=== PATIENT | male | born 1950 | race Caucasian/White ===

== ENCOUNTER 2016-09-05 17:13 | Observation (INO) | payer BC ==
--- NOTE | 2016-09-05 17:33 | EDPHY ---
HPI/HX/ROS/PE/MDM Narrative: CHIEF COMPLAINT: Atrial fibrillation HPI: This patient is an anticoagulated 66-year-old male with history of recently diagnosed atrial fibrillation who presents to the Emergency Department following an episode of tachycardia with heart rate above 200 as measured by his pulse oximeter beginning at midnight last night and persisting for three hours before spontaneously resolving. He awoke this morning feeling extremely fatigued and reports recurrence of his tachycardia, prompting him to present to the ED. He reports associated dyspnea. Denies chest pain, nausea, or additional complaints. He is in the process of being evaluated by Dr. Gray for his atrial fibrillation and is wearing a Holter monitor at time of presentation. REVIEW OF SYSTEMS: Aside from elements discussed in the HPI, a comprehensive 10-point review of systems was reviewed and is negative. PMH: Atrial fibrillation (Eliquis) SOCIAL HISTORY: at bedside PHYSICAL EXAM: General:Patient is alert, in no acute distress. ENT:Eyes are normal to inspection. ENT inspection normal. Neck: Normal inspection. Full range of motion. Respiratory:No respiratory distress. Breath sounds normal bilaterally. Cardiovascular: Irregular rhythm, normal rate. Strong peripheral pulses. Normal cap refill. Abdomen:The abdomen is nontender to palpation. There are no peritoneal signs. There are normal bowel sounds. Back: Normal to inspection. No tenderness to palpation. Skin: Normal color. No rash. Warm and dry. Extremities: Normal appearance. Full range of motion. Neuro: Oriented x3. Normal motor function. Normal sensory function. ED Course: This 66-year-old male recently diagnosed with atrial fibrillation and currently undergoing evaluated by Dr. Gray presents with complaint of tachycardia as measured by his pulse oximeter from midnight to 3:00am this morning and residual lightheadedness and fatigue persisting to the present. He denies chest pain, SOB, nausea, or vomiting. He has an irregularly rhythm but normal rate at time of presentation. No additional significant findings on exam. Will proceed with labs, including Troponin; EKG; and chest x-ray. IV established. 1L IV NS administered. EKG was ordered and interpreted by myself: atrial flutter, rate 83. Please see Fancred system for official reading. X-ray reviewed and is normal. Labs reviewed: Troponin is mildly elevated at 0.045. I discussed lab, EKG, and imaging findings with the patient along with my recommendation that he be admitted for further cardiac workup and observation. He is agreeable to this. 185: Consultation with Dr. Haley Almanza, hospitalist, who accepts admission. MDM: This patient presents in atrial flutter with paroxysmal rapid rate and an elevated troponin. He requires admission for further workup and treatment. - Data Points Imaging Results: Imaging Impressions Chest X-Ray 09/05/16 17:45 Impression: Normal. Imaging: I viewed and interpreted images myself Laboratory Results: Laboratory Results 09/05/16 17:53 09/05/16 17:53 09/05/16 09/05/16 17:53 17:53 WBC 9.85 10^3/uL H 10^3/uL (3.80-9.50) RBC 5.57 10^6/uL 10^6/uL (4.40-6.38) Hgb 17.3 g/dL g/dL (13.7-17.5) Hct 48.0 % % (40.0-51.0) MCV 86.2 fL fL (81.5-99.8) MCH 31.1 pg pg (27.9-34.1) MCHC 36.0 g/dL g/dL (32.4-36.7) RDW 13.4 % % (11.5-15.2) Plt Count 226 10^3/uL 10^3/uL (150-400) MPV 9.8 fL fL (8.7-11.7) Neut % (Auto) 58.8 % % (39.3-74.2) Lymph % (Auto) 25.9 % % (15.0-45.0) Metcalfe % (Auto) 10.3 % % (4.5-13.0) Eos % (Auto) 4.2 % % (0.6-7.6) Baso % (Auto) 0.6 % % (0.3-1.7) Nucleat RBC Rel Count 0.0 % % (0.0-0.2) Absolute Neuts (auto) 5.80 10^3/uL 10^3/uL (1.70-6.50) Absolute Lymphs (auto) 2.55 10^3/uL 10^3/uL (1.00-3.00) Absolute Monos (auto) 1.01 10^3/uL H 10^3/uL (0.30-0.80) Absolute Eos (auto) 0.41 10^3/uL H 10^3/uL (0.03-0.40) Absolute Basos (auto) 0.06 10^3/uL 10^3/uL (0.02-0.10) Absolute Nucleated RBC 0.00 10^3/uL 10^3/uL (0-0.01) Immature Gran % 0.2 % % (0.0-1.1) Immature Gran # 0.02 10^3/uL 10^3/uL (0.00-0.10) Sodium 137 mEq/L mEq/L (134-144) Potassium 3.3 mEq/L L mEq/L (3.5-5.2) Chloride 100 mEq/L mEq/L (97-110) Carbon Dioxide 26 mEq/l mEq/l (22-31) Anion Gap 11 mEq/L mEq/L (8-16) BUN 13 mg/dL mg/dL (7-23) Creatinine 1.0 mg/dL mg/dL (0.7-1.3) Estimated GFR > 60 Glucose 153 mg/dL H mg/dL (70-100) Calcium 9.8 mg/dL mg/dL (8.5-10.4) Troponin I 0.045 ng/mL H ng/mL (0-0.034) Medications Given: Discontinued Medications Sodium Chloride (Ns) 1,000 mls @ 0 mls/hr IV ONCE ONE PRN Reason: Wide Open Stop: 09/05/16 17:46 Last Admin: 09/05/16 17:51 Dose: 1,000 mls General Time Seen by Provider: 09/05/16 17:29 Initial Vital Signs: Initial Vital Signs Temperature (C) 36.6 C 09/05/16 17:15 Heart Rate 90 09/05/16 17:15 Respiratory Rate 16 09/05/16 17:15 Blood Pressure 151/108 H 09/05/16 17:15 O2 Sat (%) 95 09/05/16 17:15 O2 Delivery Mode Room Air Allergies/Adverse Reactions: chlorhexidine Allergy (Mild, Verified 04/14/12 09:24) Rash acetaminophen Allergy (Verified 04/10/12 12:23) NAUSEA morphine Allergy (Verified 04/10/12 12:23) NAUSEA Home Medications: Medication Instructions Recorded Apixaban [Eliquis] 5 mg PO BID 09/05/16 FENOFIBRATE 160 mg PO DAILY 09/05/16 Herbals/Supplements -Info Only 1 ea PO DAILY 09/05/16 Hydrochlorothiazide [HCTZ (*)] 25 mg PO DAILY 09/05/16 Irbesartan [Avapro 150 mg (*)] 150 mg PO BID 09/05/16 Metoprolol Tartrate [Lopressor 50 50 mg PO BID 09/05/16 mg (*)] Multivitamins [Multivitamin (*)] 1 tab PO DAILY 09/05/16 Butterfield-3 Fatty Acids [Fish Oil 1000 1,000 mg PO TIDMEAL 09/05/16 mg (*)] Propafenone HCl [Propafenone HCl 225 mg PO BID 09/05/16 ER] Tears/Dextran 70/Hypromellose 1 drop EACHEYE .4-5X/DAY PRN 09/05/16 [Natural Balance Tears (*)] Vitamin B Complex [B Complex] 1 each PO DAILY 09/05/16 metFORMIN HCL [Metformin HCl] 500 mg PO BIDMEAL 09/05/16 oxyCODONE IR [Oxycodone Ir (*)] 5 mg PO Q6H 09/05/16 ALPRAZolam [Xanax 0.5 MG (*)] 0.5 mg PO HS 09/06/16 Departure - Departure Disposition: [facility] Inpatient Acute Clinical Impression: Elevated troponin Arrhythmia Qualifiers: Arrhythmia type: atrial flutter Atrial flutter type: unspecified Qualified Code (s): I48.92 - Unspecified atrial flutter Condition: Fair Report Scribed for: Chito Hopkins Report Scribed by: Elizabeth Dumont Date of Report: 09/05/16 Time of Report: 17:31 Physician Review and Approval Statement: Portions of this note were transcribed by an ED scribe. I personally performed the history, physical exam, and medical decision making; and confirm the accuracy of the information in the transcribed note.
[2016-09-05] MEDS ORDERED: NS 1,000 ML IV ONE (17:45)
[2016-09-05 18:02] LABS: % IMMATURE GRANULYOCYTES 0.2 % (0.0-1.1); ABSOLUTE IMMATURE GRANULOCYTES 0.02 10^3/uL (0.00-0.10); ADD DIFF? NO; ADD MORPH? NO; ADD SCAN? NO; ATYPICAL LYMPHOCYTE FLAG 10 (0-99); FRAGMENT RBC FLAG 0 (0-99); HEMOGLOBIN 17.3 g/dL (13.7-17.5); LEFT SHIFT FLG 0 (0-99); LIPEMIA HEMOLYSIS FLAG 90 (0-99); MEAN CELL HEMOGLOBIN 31.1 pg (27.9-34.1); MEAN CELL VOLUME 86.2 fL (81.5-99.8); MEAN PLATELET VOLUME 9.8 fL (8.7-11.7); PLATELET CLUMPS FLAG 0 (0-99); PLATELET COUNT 226 10^3/uL (150-400); RED BLOOD CELL COUNT 5.57 10^6/uL (4.40-6.38); RED CELL DISTRIBUTION WIDTH 13.4 % (11.5-15.2)
--- NOTE | 2016-09-05 18:22 | CPEKG ---
Heart Rate: 83 RR Interval: 723 QRSD Interval: 88 QT Interval: 376 QTC Interval: 442 QRS Bamberg: -22 T Wave Bamberg: 223 EKG Severity - ABNORMAL ECG - EKG Impression: A-FLUTTER W/ PREDOM 4:1 AV BLOCK, A-RATE 312 EKG Impression: BORDERLINE LEFT AXIS DEVIATION EKG Impression: NONSPECIFIC T ABNORMALITIES, INFERIOR LEADS Electronically Signed By: Eron Richardson 05-Sep-2016 18:46:49
[2016-09-05 18:32] LABS: ANION GAP 11 mEq/L (8-16); CALCIUM 9.8 mg/dL (8.5-10.4); CARBON DIOXIDE 26 mEq/l (22-31); CHLORIDE 100 mEq/L (97-110); GLOMERULAR FILTRATION RATE > 60; GLUCOSE 153 mg/dL (70-100); POTASSIUM 3.3 mEq/L (3.5-5.2); SODIUM 137 mEq/L (134-144)
[2016-09-05 18:44] LABS: TROPONIN I 0.045 ng/mL (0-0.034)
[2016-09-05] MEDS ORDERED: ONDANSETRON 4 MG/2 ML VIAL IVP PRN (20:58)
[2016-09-05] MEDS ORDERED: ONDANSETRON DISINTEGRATING 4 MG TAB PO PRN (20:58)
[2016-09-05] MEDS ORDERED: TEARS/DEXTRAN 70/HYPROMELLOSE 15 ML OPHT.BTL EACHEYE PRN (21:01)
[2016-09-05] MEDS ORDERED: hydrALAZINE 25 MG TAB PO PRN (21:05)
[2016-09-05] MEDS ORDERED: POTASSIUM CL 20 MEQ TAB PO ONE (21:16)
[2016-09-05] MEDS ORDERED: ALPRAZolam 1 MG TAB PO SCH (21:28)
[2016-09-05] MEDS: APIXABAN 5 MG TAB PO SCH (21:45)
[2016-09-05] MEDS: PROPAFENONE HCL SR 225 MG CAP PO SCH (21:45)
[2016-09-05] MEDS: METOPROLOL TARTRATE 50 MG TAB PO SCH (21:46)
[2016-09-05] MEDS: IRBESARTAN 150 MG TAB PO SCH (21:46)
[2016-09-05] MEDS: oxyCODONE IR 5 MG TAB PO SCH (21:48)
--- NOTE | 2016-09-05 22:39 | GHP ---
[f rep st] HISTORY AND PHYSICAL DATE OF ADMISSION: 09/05/2016 CHIEF COMPLAINT: 1. Heart palpitations. 2. Shortness of breath. HISTORY OF PRESENT ILLNESS: The patient is a 66-year-old male who was recently diagnosed with parox ysmal atrial fibrillation, followed by Dr. Nikos Gray, and presents to the Emergency Department wi recurrent palpitations. He gives a 2-month history of generalized fatigue. Cardiac workup inclu ded a Holter monitor. In outpatient followup, upon review of his monitor, it was found he is having paroxysmal atrial fibrillation. He has been treated with Lopressor for rate control and started on Eliquis for stroke prevention. Most recently, he was started on Rythmol, and upon followup at his c ardiologist's office August 27, he was found to be in normal sinus rhythm. However, the night before a dmission he developed marked heart palpitations. When he put on his pulse oximetry monitor, he stat es his heart rate was in the 200 range. He took a couple of extra doses of Xanax in an attempt to f all asleep despite his very high heart rate. He states ultimately he was able to fall asleep, but w hen he woke up in the morning he continued to have heart palpitations and a rapid heart rate. Later in the day, he presented to the Emergency Department. He denies chest pain at this time. He does report shortness of breath during a rapid heart rate events. In the Emergency Department, he was fo und to be rate controlled in a 4:1 atrial flutter. He is anticoagulated on Eliquis. He had a recen t echocardiogram as well as a nuclear medicine stress test which showed normal myocardial perfusion. His Packer treadmill score was 2, consistent with intermediate cardiovascular risk. During his exer cise stress test, he developed atrial fibrillation and flutter at peak exercise which was associated with [address] depression. This is thought to be a false positive. He is supposed to follow up w [facility] again tomorrow, but given his recurrent symptoms, he presented to the Emergency Depar [facility]. In the ER, labs revealed a very mildly elevated troponin and he is admitted to the hospital for further management. PAST MEDICAL HISTORY: 1. Paroxysmal atrial fibrillation. 2. Hypertension. 3. Diabetes mellitus type 2. 4. History of hepatitis C. 5. Hyperlipidemia. 6. Insomnia. 7. Irritable bowel syndrome. 8. Abnormal PSA. 9. History of colon polyps. 10. Gilbert syndrome. MEDICATIONS: Please see Hand Talk for completed, updated outpatient medication list. FAMILY HISTORY: Positive for Alzheimer's and diabetes. PAST SURGICAL HISTORY: 1. Left knee arthroscopic surgery. 2. Inguinal hernia repair. 3. Left knee replacement. 4. Meniscectomy. 5. Prostate biopsies. SOCIAL HISTORY: The patient is . He lives independently with his spouse, who is present at the bedside. He is a lifetime nonsmoker. He reports daily alcohol use, about 2 beers a day. 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 REVIEW OF SYSTEMS: A 10-point review of systems was performed and was negative, except as per HPI. OBJECTIVE: VITAL SIGNS: Temperature is 36.9, blood pressure 142/93, heart rate 96, respiratory rat e 18, he is 95% on room air. GENERAL: The patient is awake, alert, oriented, in no acute distress. HEENT: Head is atraumatic, normocephalic. Pupils equal, round, reactive to light. Extraocular m uscles are intact. Oropharynx is clear. Mucous membranes are moist. NECK: Supple. There is no J VD. HEART: Irregularly irregular rhythm without murmur. LUNGS: Clear to auscultation bilaterally . ABDOMEN: Soft, nondistended, nontender. Obese, protuberant, with normoactive bowel tones. EXTR EMITIES: Without cyanosis, clubbing, and have just trace bilateral lower extremity edema. NEUROLOG IC: Grossly nonfocal. LABORATORY DATA: 1. CBC reveals a white count of 9.85, normal hemoglobin, normal platelets. Basic metabolic panel i s remarkable for a potassium of 3.3, blood sugar is 153. Troponin slightly elevated at 0.045. 2. EKG shows atrial flutter with a 4:1 ventricular rate. 3. Chest x-ray is personally reviewed and interpreted. There is no acute cardiopulmonary process. ASSESSMENT AND PLAN: The patient is a 66-year-old male with a history of hypertension, hyperlipidem ia, and paroxysmal atrial fibrillation/flutter, who presented to the Emergency Department several ho urs after onset of palpitations. He was found to have a slightly elevated troponin and was admitted to the hospital for further evaluation. 1. Paroxysmal atrial fibrillation/flutter. His EKG is consistent with a 4:1 flutter. He is curren tly rate-controlled and we will continue him on his outpatient dose of metoprolol. He is anticoagul ated with Eliquis; this will also be continued. We will also continue his Rythmol. We will cycle h is troponins and request a Cardiology consult in the morning. We will go ahead and make him n.p.o. after midnight in the event he has ongoing issues and requires cardioversion. Further management ca n be determined by his Cardiology team. He is followed by Dr. Nikos Gray primarily. He had a nor mal TSH in July 2016. I also reviewed his August 17, 2016 echocardiogram, at which time he had an eje ction fraction of 60-65%, no wall motion abnormalities, mild aortic regurgitation, mitral regurgitat ion, and moderate tricuspid regurgitation. 2. Valvular heart disease. Followed by Cardiology. 3. Elevated troponin. This is very mild. This is likely a troponin leak given his history of hear t rate in the 200 range. He is chest pain-free at this time. We will go ahead and cycle his tropon ins and discuss with Cardiology if this continues to upward trend. 4. Hypertension. He is suboptimally controlled. We will continue his outpatient medications, incl uding hydrochlorothiazide, Avapro, and metoprolol. I will add p.r.n. hydralazine for now and consid er up-titration of metoprolol if his blood pressures persist elevated. 5. Diabetes mellitus type 2. His blood sugar was 153 on arrival. He has normal kidney function. We will continue his metformin. 6. Hyperlipidemia. Continue his fenofibrate. 7. Insomnia. He takes Xanax at bedtime. We will continue this outpatient medication. 8. Hypokalemia. Will replace with oral potassium and follow. 9. Code status. The patient is full code. 10. Deep venous thrombosis prophylaxis. Patient is anticoagulated on Eliquis. DISPOSITION: Patient is admitted to observation status. /[id number]/MODL
[2016-09-06 05:05] LABS: ANION GAP 10 mEq/L (8-16); CALCIUM 9.4 mg/dL (8.5-10.4); CARBON DIOXIDE 26 mEq/l (22-31); CHLORIDE 104 mEq/L (97-110); CREATININE 0.9 mg/dL (0.7-1.3); GLOMERULAR FILTRATION RATE > 60; GLUCOSE 149 mg/dL (70-100); POTASSIUM 3.4 mEq/L (3.5-5.2); SODIUM 140 mEq/L (134-144)
[2016-09-06 05:16] LABS: TROPONIN I 0.039 ng/mL (0-0.034)
[2016-09-06] MEDS ORDERED: metFORMIN HCL 500 MG TAB PO SCH (08:00)
[2016-09-06] MEDS ORDERED: FENOFIBRATE 145 MG TAB PO SCH (09:00)
[2016-09-06] MEDS ORDERED: HYDROCHLOROTHIAZIDE 25 MG TAB PO SCH (09:00)
--- NOTE | 2016-09-06 11:13 | PDCARPN ---
Cardiology Progress Note Chief Complaint: fast heart rate Assessment/Plan: Assessment: There is a full progress note for this patient in the hard chart. Patient is a 66 y/o male with HTN, HLP, DM, and atrial flutter (on Eliquis with [id number] score of 3) who presented to [facility] with complaints of rapid heart rate with symptoms (fatigue and awareness of the arrhythmia). Rythmol trial without any success with either reduction in heart rate or suppression of the arrhythmia. Plan: (1) conservative option of medication manipulation which would include cessation of the rythmol in favor of up titration of the metoprolol and trial with deep breathing (2) TATIANA with possible cardioversion (3) Discussion with Dr. Tip Wolff of [facility] Maintain therapy on Eliquis for CVA suppression Continue metoprolol and Avapro for HTN suppression Formal sleep study likely indicated Aggressive DM management should continue Subjective: fast heart rates with fatigue Reviewed/Discussed With: family, hospitalist, multidisciplinary team Objective: Vital Signs (8 Hrs) Temp Pulse Resp BP Pulse Ox 09/06/16 03:41 36.6 C 140 H 20 116/101 H 93 Intake/Output (24 Hrs) 09/05/16 09/06/16 09/07/16 05:59 05:59 05:59 Intake Total 1000 Balance 1000 Intake: IV Intake (ml) 0 IV Infused (ml) 1000 Other: Weight 104.9 kg Result Diagrams: 09/05/16 17:53 09/06/16 04:30 Cardiac Labs: Cardiac Lab Results (72 Hrs) 09/06/16 09/05/16 04:30 23:05 Troponin I 0.039 H 0.036 H Telemetry: atrial flutter with fast ventricular response (100-120 bpm) - Physical Exam Constitutional: WDWN, healthy appearing, no apparent distress Eyes: PERRL, EOMI Ears, Nose, Mouth, Throat: moist mucous membranes Cardiovascular: no murmurs, irregularly irregular, No jugular vein distention Peripheral Pulses: 2+: dorsalis-pedis (R), dorsalis-pedis (L) Respiratory: clear to auscultate bilat, no crackles, no wheezes Gastrointestinal: normoactive bowel sounds Skin: no rashes, no edema Musculoskeletal: no muscular tenderness Neurologic: AAOx3, CN II-XII grossly intact Psychiatric: cooperative, interactive, following commands ICD10 Worksheet Patient Problems: Problems Problem Status Onset Arrhythmia Acute Elevated troponin Acute
[2016-09-06] MEDS: APIXABAN 5 MG TAB PO SCH (11:32)
[2016-09-06] MEDS: IRBESARTAN 150 MG TAB PO SCH (11:33)
[2016-09-06] MEDS: METOPROLOL TARTRATE 50 MG TAB PO SCH (11:34)
[2016-09-06] MEDS: oxyCODONE IR 5 MG TAB PO SCH ×2 (11:35→14:14)
[2016-09-06] MEDS: PROPAFENONE HCL SR 225 MG CAP PO SCH (11:42)
[2016-09-06] MEDS ORDERED: oxyCODONE IR 5 MG TAB PO PRN (14:53)
[2016-09-06] MEDS ORDERED: ALPRAZolam 1 MG TAB PO SCH ×2 (14:53→21:00)
--- NOTE | 2016-09-06 14:57 | HOSPPROG ---
Hospitalist Progress Note Assessment/Plan: # Acute Aflutter with RVR HR in 140's at presentation- pt presenting with sx of severe fatigue - TELE (personally reviewed and interpreted) aflutter in 80's - cardiology consulting for recs re: cardioversion vs ablation - NPO for possible procedure - cont propafenone 225 BID # HTN - currently controlled on home meds- oxygen saturations 95% on RA - cont ARB/HCTZ/hydralazine/ metoprolol # DM2 - BS 130-170 - hold metformin - cover with SSI if elevated # proph - holding lovenox until procedure plan clear # diet - NPO # dispo - > 2MN as pt requiring diagnostics and treatment for flutter I have discussed the case with cardiology - EP will eval today with recs Subjective: denies CP Objective: Vital Signs Temp Pulse Resp BP Pulse Ox 37.0 C 82 18 152/103 H 95 09/06/16 11:31 09/06/16 11:31 09/06/16 11:31 09/06/16 14:15 09/06/16 11:31 Laboratory Results 09/06/16 04:30 09/05/16 09/06/16 09/07/16 05:59 05:59 05:59 Intake Total 1000 Balance 1000 - Physical Exam Constitutional: obese Eyes: anicteric sclera Ears, Nose, Mouth, Throat: moist mucous membranes Cardiovascular: irregularly irregular, tachycardia Respiratory: no respiratory distress, no rales or rhonchi Gastrointestinal: normoactive bowel sounds, soft, non-tender abdomen Genitourinary: no bladder fullness Skin: warm, normal color Musculoskeletal: No asymmetric calves Neurologic: AAOx3 Psychiatric: interacting appropriately, not anxious Lymph, Heme, Immunologic: no cervical LAD ICD10 Worksheet Patient Problems: Problems Problem Status Onset Arrhythmia Acute Elevated troponin Acute
[2016-09-06] MEDS ORDERED: fentaNYL 100 MCG/2 ML INJ IVP ONE (15:25)
[2016-09-06] MEDS ORDERED: MIDAZOLAM 2 MG/2 ML VIAL IVP ONE (15:25)
[2016-09-06] MEDS ORDERED: NS 500 ML IV ONE (15:25)
[2016-09-06] MEDS ORDERED: BENZOCAINE UNIT DOSE SPRAY HURRICAINE MM ONE (15:25)
[2016-09-06] MEDS ORDERED: PROPOFOL 200 MG/20 ML VIAL IVP ONE (15:25)
[2016-09-06] MEDS ORDERED: ATROPINE SULFATE 1 MG/10 ML SYR ONE (15:33)
[2016-09-06] MEDS ORDERED: PROTOCOL POTASSIUM 1 DOSE MISC PRN (15:53)
[2016-09-06] MEDS ORDERED: PROPOFOL 200 MG/20 ML VIAL ONE (16:15)
--- NOTE | 2016-09-06 16:35 | CPEKG ---
Heart Rate: 72 RR Interval: 833 P-R Interval: 144 QRSD Interval: 94 QT Interval: 396 QTC Interval: 434 P Huntington: 73 QRS Huntington: -20 T Wave Huntington: 164 EKG Severity - ABNORMAL ECG - EKG Impression: SINUS RHYTHM EKG Impression: MULTIPLE ATRIAL PREMATURE COMPLEXES EKG Impression: BORDERLINE LEFT AXIS DEVIATION Electronically Signed By: Meet Shipman 07-Sep-2016 07:47:41
[2016-09-06 16:40] VITALS: RESP 16
--- NOTE | 2016-09-06 16:40 | PDTEE1 ---
TATIANA Cardioversion Procedure Procedure: Electrical Cardioversion, Transesophageal Echo Indications: Atrial Fibrillation Consent: Signed and in Chart Anticoagulation: Eliquis Procedural Details: After consent was signed by anesthesia and cardiology, and procedure details were reviewed once again, after Time Out was performed. Local anesthetic with hurricane spray was used. Light sedation was started, and TATIANA probe was placed without difficulty, and standard views were obtained. Heart rate, blood pressure, oxygen sat, respiratory rate, and degree of sedation were closely monitored by anesthetia. Preliminary report: normal LVEF with grossly normal ventricular chamber dimensions. mild, biatrial dilation was noted. Mild MR, physio TR and PI. Trileaflet aortic valve without sclerosis or insufficiency noted. no thrombus to the left atrial appendage was noted - there were trabeculations, but no thrombus (wave forms of > 40 mm Hg were noted), and doppler without drop out. bubble contrast injection without right to left passage noted no atheroma to the descending or transverse aorta Probe was removed, and sedation level was reassessed. 200 J SYNC with pre cardioversion rates of 100-120 bpm. Successful single shock with normal sinus rhythm at 75-85 bpm achieved. No complications were noted Patient to follow up with cardiology in one week. Maintain therapy or oral therapy as at present. Synchronized cardioversion attempt #1: 200J Results: Normal sinus rhythm Conclusions: Successful TAITANA Cardioversion Patient Problems: Problems Problem Status Onset Arrhythmia Acute Elevated troponin Acute
[2016-09-06 18:07] VITALS: PULSE 69
[2016-09-06 18:09] VITALS: BP 132/83; TEMP 97.3; O2SAT 97
--- NOTE | 2016-09-07 04:40 | GDS ---
[f rep st] DISCHARGE SUMMARY DISCHARGE DIAGNOSES: Include: 1. Acute atrial flutter with rapid ventricular response, status post cardioversion. 2. Hypertension. 3. Diabetes mellitus. HISTORY OF PRESENT ILLNESS: This is a 66-year-old male, who presents with fatigue on 09/05/2016, fo und to be in atrial flutter with rapid ventricular response. For details of the patient's initial p resentation, please see the history and physical dated 07/2016. CONSULTATIONS: Consultative services on this patient include Cardiology. PROCEDURES: On 09/06/2016, the patient underwent electrical cardioversion by Cardiology. HOSPITAL COURSE BY ISSUE: Atrial flutter. The patient was already on anticoagulation. He was angelina tored overnight on his propafenone. Decision was made to cardiovert the patient in an attempt to re turn to sinus rhythm. He was seen by Electrophysiology and if the cardioversion is not longstanding , a discussion related to ablation has been initiated and can be continued in the outpatient setting . MEDICATIONS: At the time of disposition, please reference the med rec printed on 09/06/2016. Of no te, no changes were made to the patient's outpatient medication list including anticoagulation and p ropafenone dosing. FOLLOWUP APPOINTMENTS: With Dr. Wolff from Electrophysiology in the next 1 week to cardiove rsion for followup and discussion related to atrial flatter. PENDING STUDIES: At the time of this dictation are none. TIME SPENT: I spent greater than 30 minutes in the planning and coordination of this discharge. /[id number]/MODL
--- NOTE | 2016-09-07 09:54 | ECHO ---
[id number] + + [address] : : [facility] [address] : : [phone] + Transesophageal Echocardiographic Report + ------+ :Name: KARI WAYNE Date: 09/06/2016 03:59 PM : : Hospital Admission Number: [id number] Locatio n: C: :: 1950 Gender: Male : :Age: 66 yrs Race: WH : :Reason For Study: Atrial flutter : + ------+ Left Ventricle The left ventricle is normal in size. There is normal left ventricular wall thickness. The left ventricular ejection fraction is normal. Ejection Fraction = 55-60%. The left ventricular wall motion is normal. Right Ventricle The right ventricle is grossly normal size. The right ventricular systolic function is normal. Atria Injection of contrast documented no interatrial shunt. No thrombus is detected in the left atrial appendage. The left atrial size is normal. Spontaneous contrast in LA. Right atrial size is normal. Mitral Valve The mitral valve leaflets appear normal. There is no evidence of stenosis, fluttering, or prolapse. There is mild mitral regurgitation. Tricuspid Valve Normal tricuspid valve. There is trace tricuspid regurgitation. Aortic Valve The aortic valve is trileaflet. The aortic valve opens well. Pulmonic Valve The pulmonic valve is normal in structure and function. Vessels The aortic root is normal size. Pericardium There is no pericardial effusion. Procedure With heart rate, blood pressure and oximetry monitered the patient was administered IV Versed, fentanyl and the bite block in place, the throat was anesthetized with topical spray. The Omniplane transesophageal probe was passed without difficulty. Conclusion A 2D transesophageal echocardiogram with color flow Doppler was performed. Injection of contrast documented no interatrial shunt. No thrombus is detected in the left atrial appendage. There is mild mitral regurgitation. The left ventricular ejection fraction is normal. Ejection Fraction = 55-60%. The left ventricular wall motion is normal. There is trace tricuspid regurgitation. Spontaneous contrast in LA. Final Reading Physician: Brandi Bustos signed on 09/07/2016 09:53 AM Ordering Physician: Haley Almanza Performed By: Jared Navas MD
== END 2016-09-06 18:40 | disposition home or self-care (01) ==
LOC: F2W 20:28
PROVIDERS: ADMIT Hospitalist; ATTEND Hospitalist
PROC: B246ZZ4 Ultrasonography of Right and Left Heart, Transesophageal (ICD-10-PCS; principal; 2016-09-05)
PROC: 5A2204Z Restoration of Cardiac Rhythm, Single (ICD-10-PCS; principal; 2016-09-05)
DX: I48.92 Unspecified atrial flutter (principal); I48.0 Paroxysmal atrial fibrillation; Z79.01 Long term (current) use of anticoagulants; I10 Essential (primary) hypertension; E11.9 Type 2 diabetes mellitus without complications; E78.5 Hyperlipidemia, unspecified; Z96.652 Presence of left artificial knee joint; Z86.010 Personal history of colon polyps; Z86.19 Personal history of other infectious and parasitic diseases
CPT/HCPCS: 71020; 92960; 93005; 93312; G0378; J0461; J2704

== ENCOUNTER 2016-09-27 14:58 | Day surgery (SDC) | payer BC ==
[2016-09-27] MEDS ORDERED: MIDAZOLAM 2 MG/2 ML VIAL IVP ONE (15:05)
[2016-09-27] MEDS ORDERED: NS 500 ML IV ONE (15:05)
[2016-09-27] MEDS ORDERED: PROPOFOL 200 MG/20 ML VIAL IVP ONE (15:05)
[2016-09-27] MEDS ORDERED: BENZOCAINE UNIT DOSE SPRAY HURRICAINE MM ONE (15:05)
[2016-09-27] MEDS ORDERED: fentaNYL 100 MCG/2 ML INJ IVP ONE (15:05)
--- NOTE | 2016-09-27 15:17 | CPEKG ---
Heart Rate: 107 RR Interval: 561 QRSD Interval: 104 QT Interval: 352 QTC Interval: 470 QRS Colquitt: -6 T Wave Colquitt: -24 EKG Severity - ABNORMAL ECG - EKG Impression: ATRIAL FIBRILLATION, V-RATE 80-140 EKG Impression: NONSPECIFIC T ABNORMALITIES, INFERIOR LEADS Electronically Signed By: Kyree Wolff 27-Sep-2016 17:56:10
[2016-09-27 15:38] LABS: INR 1.31 (0.83-1.16); PROTIME(PATIENT) 16.3 SEC (12.0-15.0)
[2016-09-27 15:39] LABS: APTT 31.8 SEC (23.0-38.0)
[2016-09-27] MEDS ORDERED: ATROPINE SULFATE 1 MG/10 ML SYR ONE (15:50)
[2016-09-27 15:58] LABS: ANION GAP 15 mEq/L (8-16); CALCIUM 10.3 mg/dL (8.5-10.4); CARBON DIOXIDE 25 mEq/l (22-31); CHLORIDE 100 mEq/L (97-110); CREATININE 1.1 mg/dL (0.7-1.3); GLOMERULAR FILTRATION RATE > 60; GLUCOSE 136 mg/dL (70-100); MAGNESIUM 1.7 mg/dL (1.6-2.3); POTASSIUM 3.4 mEq/L (3.5-5.2); SODIUM 140 mEq/L (134-144)
[2016-09-27] MEDS ORDERED: LIDOCAINE 2% 5 ML SDV ONE (16:37)
--- NOTE | 2016-09-27 16:47 | PDTEE1 ---
TATIANA Cardioversion Procedure Procedure: Electrical Cardioversion Indications: Atrial Fibrillation Consent: Signed and in Chart Anticoagulation: Eliquis Procedural Details: Pads were placed in anterior-posterior position. TATIANA probe was advanced and standard images obtained. There is no evidence of left atrial or left atrial appendage thrombus. Synchronized cardioversion attempt #1: 200J Results: Normal sinus rhythm Conclusions: Successful Cardioversion Patient Problems: Problems Problem Status Onset Arrhythmia Acute Elevated troponin Acute
--- NOTE | 2016-09-27 16:57 | CPEKG ---
Heart Rate: 61 RR Interval: 984 P-R Interval: 164 QRSD Interval: 90 QT Interval: 424 QTC Interval: 427 P [place]: 73 QRS [place]: -15 T Wave [place]: -73 EKG Severity - ABNORMAL ECG - EKG Impression: SINUS RHYTHM EKG Impression: PAC EKG Impression: BORDERLINE LEFT AXIS DEVIATION EKG Impression: NONSPECIFIC REPOL ABNORMALITY, LATERAL LEADS Electronically Signed By: Kyree Wolff 27-Sep-2016 17:56:04
[2016-09-27] MEDS ORDERED: IRBESARTAN 150 MG TAB PO ONE (17:00)
[2016-09-27] MEDS ORDERED: METOPROLOL TARTRATE 50 MG TAB PO ONE (17:00)
[2016-09-27] MEDS ORDERED: PROPAFENONE HCL SR 325 MG CAP PO ONE (17:30)
== END 2016-09-27 17:56 | disposition home or self-care (01) ==
LOC: FCATH 14:58
PROVIDERS: ATTEND Internal Medicine Cardiovascular Disease
PROC: B246ZZ4 Ultrasonography of Right and Left Heart, Transesophageal (ICD-10-PCS; principal; 2016-09-27)
PROC: 5A2204Z Restoration of Cardiac Rhythm, Single (ICD-10-PCS; principal; 2016-09-27)
DX: I48.92 Unspecified atrial flutter (principal); I48.1 Persistent atrial fibrillation; I10 Essential (primary) hypertension; E11.9 Type 2 diabetes mellitus without complications
CPT/HCPCS: J0461; J2704

== ENCOUNTER 2017-08-25 06:27 | Day surgery (SDC) | payer BC ==
[2017-08-25] MEDS ORDERED: NS 500 ML IV ONE (06:33)
[2017-08-25] MEDS ORDERED: ATROPINE SULFATE 1 MG/10 ML SYR IVP ONE (06:33)
[2017-08-25] MEDS ORDERED: fentaNYL 100 MCG/2 ML INJ IVP ONE (06:33)
[2017-08-25] MEDS ORDERED: BENZOCAINE UNIT DOSE SPRAY HURRICAINE MM ONE (06:33)
[2017-08-25] MEDS ORDERED: MIDAZOLAM 2 MG/2 ML VIAL IVP ONE (06:33)
--- NOTE | 2017-08-25 06:44 | CPEKG ---
Heart Rate: 112 RR Interval: 536 QRSD Interval: 96 QT Interval: 336 QTC Interval: 459 QRS [place]: -20 T Wave [place]: 27 EKG Severity - ABNORMAL ECG - EKG Impression: ATRIAL FLUTTER, A-RATE 294 EKG Impression: VENTRICULAR PREMATURE COMPLEX EKG Impression: BORDERLINE LEFT AXIS DEVIATION Electronically Signed By: Nikos Gray 25-Aug-2017 10:48:44
[2017-08-25 07:20] LABS: INR 1.36 (0.83-1.16); PROTIME(PATIENT) 16.9 SEC (12.0-15.0)
--- NOTE | 2017-08-25 07:45 | PDANEPAE ---
ANE History of Present Illness 67 year old male with A Fib presents for TATIANA/CV. ANE Past Medical History - Cardiovascular History Hx Hypertension: Yes Hx Arrhythmias: Yes Hx Chest Pain: No Hx Palpitations: Yes - Pulmonary History Hx COPD: No Hx Asthma/Reactive Airway Disease: No Hx Recent Upper Respiratory Infection: No Hx Oxygen in Use at Home: No Hx Sleep Apnea: Yes - Endocrine History Hx Diabetes: Yes Hypothyroid: No Hyperthyroid: No Obesity: mild - Renal History Hx Renal Disorders: No - Liver History Hepatic History Comment: Gilbert's Syndrome. Hep C antibody positive - Neurological & Psychiatric Hx Hx Neurological and Psychiatric Disorders: No - Cancer History Cancer History Comment: Prostate Cancer - GI History Gastrointestinal History Comment: Irritable bowel syndrome - Chronic Pain History Chronic Pain: Yes ANE Review of Systems Review of Systems: - Exercise capacity Exercise capacity: >=4 METS - Systems Cardiac: Reports: irregular heart rate, palpitations Neurological: Reports: anxiety ANE Patient History - Allergies Allergies/Adverse Reactions: chlorhexidine Allergy (Mild, Verified 04/14/12 09:24) Rash acetaminophen Allergy (Verified 04/10/12 12:23) NAUSEA morphine Allergy (Verified 04/10/12 12:23) NAUSEA NSAIDS (Non-Steroidal Anti-Inflamma Allergy (Verified 09/27/16 15:24) - Home Medications Home medications: home medication list seen and reviewed Home Medications: Apixaban [Eliquis] 5 mg PO BID 09/05/16 [Last Taken 09/27/16 08:00] FENOFIBRATE 160 mg PO DAILY 09/05/16 [Last Taken 09/05/16] Herbals/Supplements -Info Only 1 ea PO DAILY 09/05/16 [Last Taken Unknown] Hydrochlorothiazide [HCTZ (*)] 25 mg PO DAILY 09/05/16 [Last Taken 09/05/16] Irbesartan [Avapro 150 mg (*)] 150 mg PO BID 09/05/16 [Last Taken 09/05/16] Metoprolol Tartrate [Lopressor 50 mg (*)] 50 mg PO BID 09/05/16 [Last Taken 07/19] Multivitamins [Multivitamin (*)] 1 tab PO DAILY 09/05/16 [Last Taken Unknown] [place]-3 Fatty Acids [Fish Oil 1000 mg (*)] 1,000 mg PO TIDMEAL 09/05/16 [Last Taken 09/05/16] Propafenone HCl [Propafenone HCl ER] 225 mg PO BID 09/05/16 [Last Taken 09/05/16 ] Tears/Dextran 70/Hypromellose [Natural Balance Tears (*)] 1 drop EACHEYE .4-5X/ DAY PRN 09/05/16 [Last Taken Unknown] Vitamin B Complex [B Complex] 1 each PO DAILY 09/05/16 [Last Taken Unknown] metFORMIN HCL [Metformin HCl] 500 mg PO BIDMEAL 09/05/16 [Last Taken 09/05/16] oxyCODONE IR [Oxycodone Ir (*)] 5 mg PO Q6H 09/05/16 [Last Taken 09/05/16] ALPRAZolam [Xanax 0.5 MG (*)] 0.5 mg PO HS 09/06/16 [Last Taken 09/05/16] - NPO status NPO Status: no food or drink >8 hours - Anes Hx Anes Hx: no prior problems - Smoking Hx Smoking Status: Never smoked Marijuana use: No - Alcohol Use Alcohol Use: None - Family Anes Hx Family Anes Hx: neg - N/A ANE Labs/Vital Signs - Labs Result Diagrams: 08/25/17 06:45 - Vital Signs Vital Signs: reviewed preoperatively; see RN documention for details Height: 175.26 cm Weight: 99.337 kg ANE Physical Exam - Airway Neck exam: FROM, increased neck circumference, short neck Mallampati Score: Class 2 Mouth exam: normal dental/mouth exam, andre - Pulmonary Pulmonary: no respiratory distress - Cardiovascular Cardiovascular: irregularly irregular, tachycardia - ASA Status ASA Status: III ANE Anesthesia Plan Anesthesia Plan: GA with mask Total IV Anesthesia: Yes
[2017-08-25] MEDS ORDERED: PROPOFOL/EMULSION 500 MG/50 ML BOTTLE IV ONE (08:05)
--- NOTE | 2017-08-25 08:14 | PDHPUP ---
History & Physical Update H&P update statement: This history and physical update is based on an assessment of the patient which was completed after admission or registration (within 24 hours), but prior to the surgery/procedure. H&P update: H&P reviewed & patient examined, no change in patient's condition since H&P completed
[2017-08-25] MEDS ORDERED: PERFLUTREN LIPID MICROSPHERES 1.1 MG/ML VIAL IV ONE (08:30)
--- NOTE | 2017-08-25 08:54 | PDTEE1 ---
TATIANA Cardioversion Procedure Procedure: electrical cardioversion, transesophageal echo Indications: atrial fibrillation Consent: signed and in chart Anticoagulation: eliquis Procedural Details: After consents for sedation, TATIANA, and possible cardioversion were signed, the patient was positioned in the left lateral decub position. Monitoring of blood pressure, heart rate, respiration, oxygen saturation, and CO2 monitor undertaken. The TATIANA probe was placed with difficulty, and standard images were obtained. Preliminary report: Grossly normal aortic valve (trileaflet) without appreciable insufficiency noted. Mild tricuspid regurgitation Grossly normal mitral valve Grossly normal pulmonic valve "smoke" was noted to the left atrium Possible thombus to the left atrial appendage Definity used to rule out thrombus - no thrombus noted Single shock at 200J (sync) with return to normal sinus rhythm at 65 bpm Synchronized cardioversion attempt #1: 200J Results: normal sinus rhythm Conclusions: successful TATIANA cardioversion Conclusion Comment: Maintain therapy on Eliquis for next month (at minimum) and have follow up with cardiology in one week Patient Problems: Problems Problem Status Onset Arrhythmia Acute Elevated troponin Acute
--- NOTE | 2017-08-25 09:35 | POSTANESTH ---
Post Anesthetic Evaluation Cardiovascular Status: Normal, Stable (Return to NSR) Respiratory Status: Normal, Stable, Similar to Pre-op Cond. Level of Consciousness/Mental Status: Can Participate in Eval, Alert and Oriented Pain Control: Adequate, Prn Tx Ordered Nausea/Vomiting Control: Adequate, Prn Tx Ordered Complications Possibly Related to Anesthesia: None Noted
--- NOTE | 2017-08-25 09:54 | CPEKG ---
Heart Rate: 82 RR Interval: 732 P-R Interval: 168 QRSD Interval: 94 QT Interval: 396 QTC Interval: 463 P [place]: 65 QRS [place]: -22 T Wave [place]: -33 EKG Severity - ABNORMAL ECG - EKG Impression: SINUS RHYTHM EKG Impression: MULTIPLE ATRIAL PREMATURE COMPLEXES EKG Impression: PROBABLE LEFT ATRIAL ABNORMALITY EKG Impression: BORDERLINE LEFT AXIS DEVIATION EKG Impression: BORDERLINE T ABNORMALITIES, INFERIOR LEADS Electronically Signed By: Nikos Gray 25-Aug-2017 10:48:34
== END 2017-08-25 10:18 | disposition home or self-care (01) ==
LOC: FCATH 06:27
PROVIDERS: ATTEND Internal Medicine Cardiovascular Disease
PROC: 5A2204Z Restoration of Cardiac Rhythm, Single (ICD-10-PCS; principal; 2017-08-25)
PROC: B245ZZ4 Ultrasonography of Left Heart, Transesophageal (ICD-10-PCS; principal; 2017-08-25)
DX: I48.91 Unspecified atrial fibrillation (principal); E11.9 Type 2 diabetes mellitus without complications; E78.00 Pure hypercholesterolemia, unspecified; E80.4 Gilbert syndrome; B19.20 Unspecified viral hepatitis C without hepatic coma; K58.9 Irritable bowel syndrome, unspecified; Z79.01 Long term (current) use of anticoagulants
CPT/HCPCS: 92960; 93005; C8927; J2704; Q9957

== ENCOUNTER 2017-08-27 11:27 | Inpatient (IN) | payer BC, OTHER ==
--- NOTE | 2017-08-27 12:01 | CPEKG ---
Heart Rate: 80 RR Interval: 750 P-R Interval: 156 QRSD Interval: 86 QT Interval: 404 QTC Interval: 466 P [place]: 69 QRS [place]: -19 T Wave [place]: 15 EKG Severity - OTHERWISE NORMAL ECG - EKG Impression: SINUS RHYTHM EKG Impression: ATRIAL PREMATURE COMPLEX EKG Impression: BORDERLINE LEFT AXIS DEVIATION Electronically Signed By: Zina Joyner 27-Aug-2017 15:00:43
[2017-08-27 12:26] LABS: PLATELET COUNT 184 10^3/uL (150-400)
--- NOTE | 2017-08-27 12:26 | EDPHY ---
H & P Stated Complaint: SOB, dizzy since last night, productive cough, feels bloated Time Seen by Provider: 08/27/17 12:07 HPI/ROS: CHIEF COMPLAINT: Shortness of breath HISTORY OF PRESENT ILLNESS: 67-year-old male with a history of AFib, on Eliquis , presents with shortness of breath. He underwent cardioversion for Afib 2 days ago. He felt well until yesterday, when he started feeling shortness of breath. SOB has gradually increased and now SOB at rest. Associated with a cough productive of whitish phlegm mixed with BRB. Oxygen saturation this morning at home was 80% on room air. No chest pain,, leg pain/swelling and no fever. No prior similar sx. REVIEW OF SYSTEMS: complete 10 point ROS negative except at noted in the HPI - Personal History Tetanus Vaccine Date: 03/21/2000 DT - Medical/Surgical History Hx Asthma: No Hx Chronic Respiratory Disease: No Hx Diabetes: Yes Hx Cardiac Disease: Yes Hx Renal Disease: No Hx Cirrhosis: No Hx Alcoholism: No Hx HIV/AIDS: No Hx Splenectomy or Spleen Trauma: No Other PMH: HTN, DM, atrial fibrilliation. sx: lt knee replacement, 3 arthroscopies, hernia repair - Social History Smoking Status: Never smoked - Physical Exam Exam: General Appearance: Alert, pleasant Eyes: Pupils equal and round, no conjunctival pallor or injection ENT, Mouth: Mucous membranes moist Neck: Normal inspection Respiratory: Lungs are clear to auscultation Cardiovascular: Regular rate and rhythm, occasional ectopic beat Gastrointestinal: Abdomen is soft and nontender Neurological: A&O, nonfocal, normal gait Skin: Warm and dry Extremities: Nontender, no pedal edema Psychiatric: Mood and affect normal Constitutional: Initial Vital Signs Temperature (C) 37.0 C 08/27/17 11:36 Heart Rate 82 08/27/17 11:36 Respiratory Rate 18 08/27/17 11:36 Blood Pressure 171/108 H 08/27/17 11:36 O2 Sat (%) 93 08/27/17 11:36 O2 Delivery Mode Nasal Cannula O2 (L/minute) 2 Allergies/Adverse Reactions: chlorhexidine Allergy (Mild, Verified 04/14/12 09:24) Rash acetaminophen Allergy (Verified 04/10/12 12:23) NAUSEA morphine Allergy (Verified 04/10/12 12:23) NAUSEA NSAIDS (Non-Steroidal Anti-Inflamma Allergy (Verified 09/27/16 15:24) Home Medications: Medication Instructions Recorded Apixaban [Eliquis] 5 mg PO BID 09/05/16 FENOFIBRATE 160 mg PO DAILY 09/05/16 Herbals/Supplements -Info Only 1 ea PO DAILY 09/05/16 Irbesartan [Avapro 150 mg (*)] 150 mg PO BIDMEAL 09/05/16 Metoprolol Tartrate [Lopressor 50 50 mg PO BID 09/05/16 mg (*)] Multivitamins [Multivitamin (*)] 1 tab PO DAILY 09/05/16 [place]-3 Fatty Acids [Fish Oil 1000 1,000 mg PO TIDMEAL 09/05/16 mg (*)] Propafenone HCl [Propafenone HCl 225 mg PO BID 09/05/16 ER] Tears/Dextran 70/Hypromellose 1 drop EACHEYE .4-5X/DAY PRN 09/05/16 [Natural Balance Tears (*)] Vitamin B Complex [B Complex] 1 each PO DAILY 09/05/16 metFORMIN HCL [Metformin HCl] 500 mg PO BIDMEAL 09/05/16 oxyCODONE IR [Oxycodone Ir (*)] 5 mg PO Q6HRS PRN 09/05/16 Diazepam [Valium 5 MG (*)] 5 mg PO BID PRN 08/27/17 Escitalopram Oxalate [Lexapro] 20 mg PO HS 08/27/17 Eszopiclone 5 mg PO HS 08/27/17 Melatonin/Pyridoxine HCl (B6) 20 mg PO HS PRN 08/27/17 [Melatonin 10 mg Tablet] Furosemide [Lasix] 20 mg PO DAILY #30 tablet 08/28/17 Lisinopril [Zestril 20 mg (*)] 5 mg PO DAILY #30 tab 08/28/17 Medical Decision Making - Diagnostics EKG Interpretation: EKG interpreted by me reveals normal sinus rhythm, rate 80, PAC, LAD, no ST or T segment changes. Interpretation: Borderline EKG Imaging Results: Chest/Thorax CTA 08/27/17 12:22 Impression: 1. No evidence of thrombopulmonary embolic disease. 2. Small bilateral pleural effusions and features of noncardiogenic interstitial edema. The pattern is less favorable for viral pneumonitis, drug reaction, or pulmonary hemorrhage. Findings discussed with Emergency Department physician, Dr. Zina Joyner on August 27, 2017 at 1350 hours. Imaging: Discussed imaging studies w/ outbound call center representative Radiologist ED Course/Re-evaluation: This patient presents with acute hypoxia and hemoptysis after recent cardioversion. Concerning presentation for acute PE. O2 4l NC placed. stat EKG reveals NSR without ischemia. CT pulmonary angiogram reveals no evidence of pulmonary embolism. There is evidence of congestive heart failure on CT scan , which correlates with BNP of 1900. Results d/w pt and his family. No prior h/ o CHF and unclear etiology of CHF today. Lasix 20 mg IV given. Will need admission for IV diuresis and further evaluation of etiology of CHF. Dr. Franco was consulted for admission to PCU and saw the pt in the ED. Differential Diagnosis: Differential diagnosis includes though it is not limited to pneumonia, pneumothorax, pulmonary embolism, aortic dissection, pericarditis, acute coronary syndrome. - Data Points Laboratory Results: Laboratory Results 08/27/17 12:06 08/27/17 12:06 Medications Given: Discontinued Medications Apixaban (Eliquis) 5 mg PO BID JEN Stop: 02/23/18 20:59 Last Admin: 08/28/17 08:56 Dose: 5 mg Furosemide (Lasix Injection) 20 mg IVP EDNOW ONE Stop: 08/27/17 14:16 Last Admin: 08/27/17 15:12 Dose: 20 mg Furosemide (Lasix) 40 mg PO BID@0900,1500 JEN Stop: 02/24/18 07:59 Last Admin: 08/28/17 08:55 Dose: Not Given Furosemide (Lasix Injection) 20 mg IVP ONCE ONE Stop: 08/28/17 13:48 Last Admin: 08/28/17 15:19 Dose: 20 mg Irbesartan (Avapro) 150 mg PO BIDMEAL JEN Stop: 02/24/18 07:59 Last Admin: 08/28/17 08:55 Dose: 150 mg Labetalol HCl (Trandate) 300 mg PO BID JEN Stop: 02/23/18 20:59 Last Admin: 08/28/17 09:39 Dose: Not Given Lisinopril (Zestril) 20 mg PO DAILY JEN Stop: 02/23/18 16:14 Last Admin: 08/28/17 08:55 Dose: 20 mg Lorazepam (Ativan Injection) 1 mg IVP EDNOW ONE Stop: 08/27/17 14:09 Last Admin: 08/27/17 14:09 Dose: 1 mg Metformin HCl (Glucophage) 500 mg PO BIDMEAL JEN Stop: 02/24/18 07:59 Last Admin: 08/28/17 08:54 Dose: 500 mg Metoprolol Tartrate (Lopressor) 50 mg PO BID JEN Stop: 02/23/18 20:59 Last Admin: 08/28/17 09:39 Dose: Not Given Miscellaneous Medication (Eszopiclone [Eszopiclone]) 5 mg PO HS JEN Stop: 02/23/18 20:59 Last Admin: 08/27/17 20:40 Dose: Not Given Miscellaneous Medication (Fenofibrate [Fenofibrate]) 160 mg PO DAILY JEN Stop: 02/24/18 08:59 Last Admin: 08/28/17 09:11 Dose: Not Given Multivitamins (Tab-A-Batsheva) 1 each PO DAILY JEN Stop: 02/24/18 08:59 Last Admin: 08/28/17 08:55 Dose: 1 each [id number] Ethyl Esters (Fish Oil) 1,000 mg PO TIDMEAL JEN Stop: 02/24/18 07:59 Last Admin: 08/28/17 14:34 Dose: 1,000 mg Oxycodone HCl (Oxycodone Ir) 5 mg PO Q6HRS PRN PRN Reason: Pain, Severe Able to Take PO Stop: 09/06/17 19:37 Last Admin: 08/27/17 20:29 Dose: 5 mg Propafenone HCl (Rythmol Sr) 225 mg PO BID JEN Stop: 02/23/18 20:59 Last Admin: 08/28/17 08:54 Dose: 225 mg Vitamin B Complex (Vitamin B Complex) 1 ea PO DAILY JEN Stop: 02/24/18 08:59 Last Admin: 08/28/17 08:55 Dose: 1 ea Zolpidem Tartrate (Ambien) 5 - 10 mg PO HS PRN PRN Reason: Sleep/Insomnia, use 1st Stop: 02/23/18 14:48 Last Admin: 08/27/17 20:29 Dose: 10 mg Departure - Departure Disposition: [facility] Inpatient Acute Clinical Impression: CHF (congestive heart failure) Qualifiers: Heart failure type: unspecified Heart failure chronicity: acute Qualified Code( s): I50.9 - Heart failure, unspecified Condition: Fair
[2017-08-27] MEDS ORDERED: IOPAMIDOL (ISOVUE 370) 100 ML BTL IV ONE (12:29)
[2017-08-27] MEDS ORDERED: LORazepam 2 MG/ML INJ ONE (14:03)
[2017-08-27] MEDS ORDERED: LORazepam 2 MG/ML INJ IVP ONE (14:08)
[2017-08-27] MEDS ORDERED: FUROSEMIDE 20 MG/2 ML VIAL IVP ONE (14:15)
[2017-08-27] MEDS ORDERED: ZOLPIDEM TARTRATE 5 MG TAB PO PRN (14:49)
[2017-08-27] MEDS ORDERED: ACETAMINOPHEN 325 MG TAB PO PRN (14:49)
[2017-08-27] MEDS ORDERED: ONDANSETRON DISINTEGRATING 4 MG TAB PO PRN (14:49)
[2017-08-27] MEDS ORDERED: ONDANSETRON 4 MG/2 ML VIAL IVP PRN (14:49)
--- NOTE | 2017-08-27 15:49 | PDGENHP ---
History and Physical History and Physical: CC: Shortness of breath HISTORY: This gentleman with history of chronic AFib fibrillation and chronic sleep apnea, comes into the ER today with 2 days of progressive dyspnea. His story starts back about a week ago when he was being assessed in the preoperative clinic for an upcoming surgery. While he was there for the assessment he suddenly had a panic attack which is typical for him and is panic attack triggered some palpitations which she recognized as his atrial fibrillation that he has had in the past. Because of his acute rapid atrial fibrillation they ended up cancelling his preoperative assessment, and referred him to his strategic sourcing consultant Dr. Gray. He was placed on Eliquis and came in 2 days ago here for cardioversion which was successfully completed without complication. There was a TATIANA done prior to the cardioversion that showed no thrombus but there is no mention of any other data from the TATIANA so I have no idea if we looked at the LV function or valve specifically. Later that night 2 days ago he started to become short of breath and his shortness of breath has progressed to the point of significant dyspnea at rest today. He did have a slight bit of hemoptysis at 1 point yesterday but otherwise has not been coughing, has not had any angina or other chest discomfort, no pleuritic symptoms, no leg pains or swelling. He describes the symptoms as feeling like he is breathing upside down. When asking the explain this he says it felt hard to get a breath in. He has had no fever chills or sweats, no nausea, no diaphoresis, no palpitations. The only medication change she has had recently is the addition of Eliquis a couple days ago for his TATIANA. The patient does admit that his blood pressure has been running high for several months and he had plans to go see Dr. Gray about that but had not done so yet. He has never been a smoker. He does have type 2 diabetes and takes medicine for that. He is overweight. There is no family history of coronary disease. Of note is the patient states he is quite stressed by the recent diagnosis of prostate cancer and the upcoming surgery for that. ROS: Chronic left knee pain after previous TKA. A comprehensive 10 system review revealed no other significant findings PAST MEDICAL HISTORY: -paroxysmal atrial fibrillation with 3 previous cardioversions, on chronic rate control, uses anticoagulation intermittently with his cardioversions * Notably Rythmol has failed to control his AFib in the past -hypertension, currently noted to be uncontrolled -type 2 diabetes mellitus -hyperlipidemia -obstructive sleep apnea could uses CPAP daily with sleep --irritable bowel syndrome -Colon polyps FAMILY MEDICAL HISTORY: Alzheimer's disease SOCIAL HISTORY: lives with his is here at the bedside and very supportive Drinks 2 beers per day No tobacco history 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 Examination: General: alert, oriented, good mentation, relaxed, lying on ER gurney breathing 2 L nasal cannula oxygen Skin: warm, dry, good color, no rash HEENT: normal Neck: no mass or jvd Resps: relaxed Lungs: A few rales, otherwise clear breath sounds Heart: regular, no murmur Abdomen: soft, nondistended, nontender, +BS, no mass Upper Extremities: normal Lower Extremities: no edema, warm No Bleeding or bruising Neurologic: normal speech/language, normal administrative processor, no focal weakness IV site: looks normal LABORATORY DATA: Troponin has not been done yet and I have ordered that BNP elevated at 1860 Metabolic panel otherwise unremarkable other than the state that his sugars in good range CBC with a white blood cell count 10.8 with predominance of neutrophils though notably has a mild increase in eosinophils at 500 RADIOLOGY STUDIES: CT scan of chest was done in the ER and I reviewed the images personally and also have reviewed the findings in detail with Dr. Thomas of Radiology There is bilateral perihilar pulmonary edema without cardiac enlargement. There are no pericardial abnormalities. I do see some small coronary calcifications notably 1 at the left anterior descending ostium. 12 LEAD EKG: Normal 12 lead EKG was sinus rhythm ASSESSMENT: # ACUTE PULMONARY EDEMA, 1ST EVER EPISODE, PRESUMABLY CARDIAC IN ETIOLOGY # UNCONTROLLED HYPERTENSION HAS BEEN PRESENT FOR AT LEAST MONTHS AND HAS FAIRLY HIGH BLOOD PRESSURES TODAY # PAROXYSMAL AFIB/SUCCESSFULLY CARDIOVERTED FROM AFIB TO SINUS RHYTHM 2 DAYS AGO , REMAINS ON ELIQUIS AFTER THAT * Did not have symptoms of dyspnea or heart failure or otherwise leading up to his cardioversion # LAST KNOWN LV FUNCTION MEASURED AT 60 % 1 YEAR AGO ON ECHO, NO REPORT OF LV FUNCTION OR VALVE FUNCTION ON HIS TATIANA 2 DAYS AGO # CARDIAC TROPONINS HAVE NOT BEEN DONE AT THIS TIME AND WILL NEED TO BE REVIEWED # CORONARY CALCIFICATIONS SEEN ON CT, NOTABLY AN OSTIAL LESION OF LAD CARDIAC RISK FACTORS INCLUDING HYPERTENSION, HYPERLIPIDEMIA, TYPE 2 DIABETES, OBESITY, MALE SEX AGE # NEW ONSET OF FEVER TODAY IN THE ER OF UNCERTAIN ETIOLOGY OR RELATION TO HIS PRESENTING SYMPTOMS # KNOWN PROSTATE CANCER, ATTEMPTING TO GET SET UP FOR SURGERY AT THE [facility] Overall my main impression that is that this is an acute congestive heart failure episode, potentially caused by his uncontrolled hypertension. Coronary disease will need to be ruled out as he does have high risk factors and does indeed have coronary calcifications on his CT, with troponin currently pending. He did not appear to be in heart failure at the time of his atrial fibrillation or cardioversion and it is hard to say what the potential relation of the recent AFib episode is to this presenting illness today. Would consider the possibility that it was actually heart failure that triggered AFib. However low as we have him in the ER he is developing fever and does have a high white blood cell count. I reviewed his CT scan with Dr. Thomas, and the findings certainly did not appear typical for a bacterial pneumonia and really not typical overall viral pneumonia but the latter could not be entirely ruled out by CT. PLANS: -inpatient admission to progressive care unit -begin diuresis -get cardiac troponin -cardiac monitoring -as we will want to see his LV function and to assess for possible coronary disease, if troponins are normal would consider a myocardial perfusion imaging stress study. If his troponins are abnormal or he has worsening heart failure, chest pain, or other concerning features, would recommend angiography. -will add lisinopril for management of heart failure and better treatment of blood pressure, follow blood pressures closely and goal of normal range at this time -check lipid panel follow sugars closely -as he has multiple risk factors including diabetes and has coronary calcifications on CT, would consider adding statin at this time instead of the fenofibrate that he is taking, however will wait and see what his coronaries look like and will review with Cardiology further -continue Eliquis now for at least a month following for any recurrent AFib, review further with Cardiology whether that should just be continued now since this is his 3rd episode of AFib and now as heart failure and diabetes -will also order a procalcitonin and will get blood cultures as he is having fever and source of that is uncertain, follow clinical course looking for evidence of a site or source of infection, I have reviewed the patient's case in detail with Dr. Nazario Boateng I have reviewed the patient's past medical records as part of this assessment, including previous echocardiograms, TATIANA notes, laboratory data and EKGs
--- NOTE | 2017-08-27 16:31 | PDMN ---
Medical Necessity Medical necessity: C/M review: Patient meets INPT criteria under MCG M-190 Heart failure: Acute pulmonary edema on CT - first ever episode, presumably cardiac in etiology, shortness of breath, acute congestive heart failure potentially caused by uncontrolled hypertension, new onset of fever in ED of uncertain etiology or relation to patient's present symptoms, WBC 10.89, BNP 1860, cardiac troponins and procalcitonin pending, requiring IV Lasix x 1 IN ED , planned Cardiology consult, ongoing oral Lasix BID, add oral Lisinipril daily , cardiac monitoring, pulse oximetry, supplemental O2, comorbid uncontrolled hypertension present for at least months, paroxysmal atrial fibrillation successfully cardioverted from atrial fibrillation to sinus rhythm 08/25/2017, patient remains on Eliquis after that, patient did not have symptoms of dyspnea or heart failure or otherwise leading up to his cardioversion, last known LV function measured at 60% one year ago on echocardiogram, no report of LV function or valve function on his ATTIANA 08/25/2017, cardiac calcifications seen on CT, notably an ostial lesion of LAD, history of cardiac risk factors - hypertension, hyperlipidemia, type 2 diabetes, obesity, male sex, age, known prostate cancer - patient attempting to get set up for surgery at [facility], history of paroxysmal atrial fibrillation with three previous cardioversions, on chronic rate control, obstructive sleep apnea with CPAP daily with sleep, irritable bowel syndrome, colon polyps. MD anticipates > 2 MN LOS for ongoing med nec for eval and TX of above.
[2017-08-27] MEDS: LISINOPRIL 20 MG TAB PO SCH (16:40)
[2017-08-27] MEDS ORDERED: DIAZEPAM 5 MG TAB PO PRN (19:38)
[2017-08-27] MEDS ORDERED: oxyCODONE IR 5 MG TAB PO PRN (19:38)
[2017-08-27] MEDS ORDERED: TEARS/DEXTRAN 70/HYPROMELLOSE 15 ML OPHT.BTL EACHEYE PRN (19:38)
--- NOTE | 2017-08-27 19:47 | PDGENHP ---
History and Physical History and Physical: CC: Shortness of breath HISTORY: This gentleman with history of chronic AFib fibrillation and chronic sleep apnea, comes into the ER today with 2 days of progressive dyspnea. His story starts back about a week ago when he was being assessed in the preoperative clinic for an upcoming surgery. While he was there for the assessment he suddenly had a panic attack which is typical for him and is panic attack triggered some palpitations which she recognized as his atrial fibrillation that he has had in the past. 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 Gray. He was placed on Eliquis and came in 2 days ago here for cardioversion which was successfully completed without complication. There was a TATIANA done prior to the cardioversion that showed no thrombus but there is no mention of any other data from the TATIANA so I have no idea if we looked at the LV function or valve specifically. Later that night 2 days ago he started to become short of breath and his shortness of breath has progressed to the point of significant dyspnea at rest today. He did have a slight bit of hemoptysis at 1 point yesterday but otherwise has not been coughing, has not had any angina or other chest discomfort, no pleuritic symptoms, no leg pains or swelling. He describes the symptoms as feeling like he is breathing upside down. When asking the explain this he says it felt hard to get a breath in. He has had no fever chills or sweats, no nausea, no diaphoresis, no palpitations. The only medication change she has had recently is the addition of Eliquis a couple days ago for his TATIANA. The patient does admit that his blood pressure has been running high for several months and he had plans to go see Dr. Gray about that but had not done so yet. He has never been a smoker. He does have type 2 diabetes and takes medicine for that. He is overweight. There is no family history of coronary disease. Of note is the patient states he is quite stressed by the recent diagnosis of prostate cancer and the upcoming surgery for that. ROS: Chronic left knee pain after previous TKA. A comprehensive 10 system review revealed no other significant findings PAST MEDICAL HISTORY: -paroxysmal atrial fibrillation with 3 previous cardioversions, on chronic rate control, uses anticoagulation intermittently with his cardioversions * Notably Rythmol has failed to control his AFib in the past -hypertension, currently noted to be uncontrolled -type 2 diabetes mellitus -hyperlipidemia -obstructive sleep apnea could uses CPAP daily with sleep --irritable bowel syndrome -Colon polyps FAMILY MEDICAL HISTORY: Alzheimer's disease SOCIAL HISTORY: lives with his is here at the bedside and very supportive Drinks 2 beers per day No tobacco history 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: Sinus rhythm Examination: General: alert, oriented, good mentation, relaxed, lying on ER gurney breathing 2 L nasal cannula oxygen Skin: warm, dry, good color, no rash HEENT: normal Neck: no mass or jvd Resps: relaxed Lungs: A few rales, otherwise clear breath sounds Heart: regular, no murmur Abdomen: soft, nondistended, nontender, +BS, no mass Upper Extremities: normal Lower Extremities: no edema, warm No Bleeding or bruising Neurologic: normal speech/language, 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 Thomas of Radiology There is bilateral perihilar pulmonary edema without cardiac enlargement. There are no pericardial abnormalities. I do see some small coronary calcifications notably 1 at the left anterior descending ostium. 12 LEAD EKG: Normal 12 lead EKG was sinus rhythm ASSESSMENT: # ACUTE PULMONARY EDEMA, 1st ever episode, presumably cardiac etiology * It appears that his TATIANA 2 days ago did not assess LV function or look at anything other than absence of thrombus * Last known ejection fraction measured at 60% 1 year ago by echo # UNCONTROLLED HYPERTENSION, severe * Has been uncontrolled for several months * Current medicines include Lopressor 50 twice daily, labetalol 300 twice daily , irbesartan 150 twice daily, and hydrochlorothiazide 25 daily, so clearly very refractory # PAROXYSMAL AFIB * Currently sinus, but did have cardioversion 2 days ago for episode of AFib triggered by anxiety * Started on Eliquis 3 days ago and keep present for at least a month due to the cardioversion * Did not have symptoms of dyspnea or heart failure or otherwise leading up to his cardioversion # CAD, CORONARY CALCIFICATIONS SEEN ON CT today * Calcifications notably 1 at LAD ostium seen on CT today * Risk factors include uncontrolled hypertension, diabetes, hyperlipidemia, obesity, age in 7 # CARDIAC TROPONINS HAVE NOT BEEN DONE AT THIS TIME AND WILL NEED TO BE REVIEWED # NEW ONSET OF FEVER in the ER today * Uncertain etiology or relation to his presenting symptoms # KNOWN PROSTATE CANCER, ATTEMPTING TO GET SET UP FOR SURGERY AT THE [facility] Overall my main impression that is that this is an acute congestive heart failure episode, potentially caused by his uncontrolled hypertension. Coronary disease will need to be ruled out as he does have high risk factors and does indeed have coronary calcifications on his CT, with troponin currently pending. He did not appear to be in heart failure at the time of his atrial fibrillation or cardioversion and it is hard to say what the potential relation of the recent AFib episode is to this presenting illness today. Would consider the possibility that it was actually heart failure that triggered AFib. However low as we have him in the ER he is developing fever and does have a high white blood cell count. I reviewed his CT scan with Dr. Thomas, and the findings certainly did not appear typical for a bacterial pneumonia and really not typical overall viral pneumonia but the latter could not be entirely ruled out by CT. PLANS: * inpatient admission to progressive care unit * begin diuresis and follow response * get cardiac troponins * cardiac monitoring * will need some assessment of coronaries, consider Lexiscan if troponins negative or angio if positive * will change hydrochlorothiazide to chlorthalidone to see if this works better for blood pressure, if not perhaps a calcium quang or other changes would be useful but clearly needs much better blood pressure control * check lipid panel follow sugars closely * as he has multiple risk factors including diabetes and has coronary calcifications on CT, would consider adding statin at this time instead of the fenofibrate that he is taking, however will wait and see what his coronaries look like and will review with Cardiology further * continue Eliquis now for at least a month following for any recurrent AFib, review further with Cardiology whether that should just be continued now since this is his 3rd episode of AFib and now as heart failure and diabetes * will also order a procalcitonin and will get blood cultures as he is having fever and source of that is uncertain, follow clinical course looking for evidence of a site or source of infection I have reviewed the patient's case in detail with Dr. Nazario Boateng I have reviewed the patient's past medical records as part of this assessment, including previous echocardiograms, TATIANA notes, laboratory data and EKGs
[2017-08-27] MEDS: METOPROLOL TARTRATE 50 MG TAB PO SCH (20:24)
[2017-08-27] MEDS: PROPAFENONE HCL SR 225 MG CAP PO SCH (20:24)
[2017-08-27] MEDS: LABETALOL HCL 200 MG TAB PO SCH (20:27)
[2017-08-27] MEDS: APIXABAN 5 MG TAB PO SCH (20:27)
[2017-08-27] MEDS ORDERED: ESZOPICLONE 5 MG PO SCH (21:00)
[2017-08-28] MEDS ORDERED: IRBESARTAN 150 MG TAB PO SCH (08:00)
[2017-08-28] MEDS ORDERED: metFORMIN HCL 500 MG TAB PO SCH (08:00)
[2017-08-28] MEDS: PROPAFENONE HCL SR 225 MG CAP PO SCH (08:54)
[2017-08-28] MEDS: FUROSEMIDE 40 MG TAB PO SCH ×2 (08:54→08:55)
[2017-08-28] MEDS: OMEGA-3 FATTY ACIDS 1,000 MG CAP PO SCH ×2 (08:55→14:34)
[2017-08-28] MEDS: LISINOPRIL 20 MG TAB PO SCH (08:55)
[2017-08-28] MEDS: APIXABAN 5 MG TAB PO SCH (08:56)
[2017-08-28] MEDS ORDERED: MULTIVITAMINS 1 EACH TAB PO SCH (09:00)
[2017-08-28] MEDS ORDERED: Fenofibrate [Fenofibrate] 160 MG PO SCH (09:00)
[2017-08-28] MEDS ORDERED: VITAMIN B COMPLEX 1 EA CAP/TAB PO SCH (09:00)
[2017-08-28] MEDS: METOPROLOL TARTRATE 50 MG TAB PO SCH (09:39)
[2017-08-28] MEDS: LABETALOL HCL 200 MG TAB PO SCH (09:39)
[2017-08-28 10:11] LABS: PLATELET COUNT 159 10^3/uL (150-400)
--- NOTE | 2017-08-28 13:20 | GCON ---
[f rep st] CONSULTATION REFERRING PHYSICIAN: Dr. Luis Franco. CHIEF COMPLAINT: Shortness of breath. HISTORY OF PRESENT ILLNESS: This is a 67-year-old gentleman with past medical history of hypertension, diabetes who had an episode of atrial flutter and fibrillation last year. Then he was cardioverted. After that he had a stress test which was negative. During stress test, he went into atrial fibrillation. However, the stress test was negative with normal EF and normal myocardial perfusion. The patient had an echocardiogram which showed normal ejection fraction without any regional wall motion abnormality. More recently, the patient had an episode of panic attack, which put him in atrial fibrillation during his preoperative workup for prostatectomy, and at that point in time, he was cardioverted. More recently, had panic attack for which he underwent TATIANA and then cardioversion. The next day he felt as if he was having a little difficulty in breathing, and then he coughed up blood. This concerned him and hence he came to the emergency room. He denies any chest pain or pressure. He has no other chest discomfort. Has no pedal edema. No leg pain. He describes his dyspnea as if he is breathing upside down. However, over the past few hours that he has been here he has done well and his breathing he says has returned to normal. In the past 6 months, he has made significant changes in his lifestyle and has lost 25 pounds. Stopped eating processed food, started exercising. His last hemoglobin C was 5.9. REVIEW OF SYSTEMS: Chronic left knee pain. Has had knee surgery. Other than that, 10-point review of systems negative. PAST MEDICAL HISTORY: Paroxysmal atrial fibrillation, on propafenone. Good rate control. Has had 3 episodes in the past year. Anticoagulation, hypertension, diabetes, dyslipidemia, sleep apnea on CPAP, colonic polyp. FAMILY HISTORY: Alzheimer disease. SOCIAL HISTORY: , lives with his . Drinks 2 beers per day. No tobacco use. MEDICATION: Metoprolol 50 twice daily, hydrochlorothiazide, Eliquis, irbesartan , propafenone 225 twice daily. PHYSICAL EXAM: VITAL SIGNS: Blood pressure 126/65, respiratory rate 16, sinus rhythm in 60s, comfortably speaking in complete statement without any shortness of breath. GENERAL: Alert, oriented x3. Good mentation. SKIN: Warm, dry. Good color. No rash. HEENT: Normal neck. No mass or JVD. RESPIRATORY: Good air entry bilaterally, equal, no rales, rhonchi, rub. HEART: S1, S2 regular. No S3. No murmurs. ABDOMEN: Soft, nontender. No guarding or rigidity. Bowel sounds present. EXTREMITIES: No edema. No clubbing. NEUROLOGIC: Grossly intact. CT scan showed no evidence of PE, small bilateral pleural effusions and features of noncardiogenic interstitial edema and calcified coronary plaque. EKG shows normal sinus rhythm, no ST changes. Previous stress test, which was performed last year, was evaluated and the findings on that stress test are as follows: The patient walked for 7 minutes 47 seconds. The test was stopped because patient developed SVT, from which he went into atrial fibrillation. The EF was normal, and the patient walked for about 8 minutes. Previous echocardiogram was also evaluated, which was normal. IMPRESSION AND PLAN: This is a 67-year-old male who comes in the day after his cardioversion with feeling of abnormal respirations, which has cleared, an EKG which is normal, a stress test within the past year, which was normal, normal LV systolic function. The only abnormality is the one time elevation of troponin, which on next check returned to normal. In view of these findings and the fact that currently, the patient is on beta quang, JULITA inhibitor, and aspirin. which is a good medical management even if he has coronary artery disease. He does not have any chest pain. His breathing has improved. The abnormal breathing was likely due to the LV stunning, which happens in the first 24 hours after cardioversion. His hemoptysis may be related to TATIANA and then start of Eliquis. The patient is planning to see Dr. Gray in the near future. I will recommend further evaluation be in the outpatient setting. Thank you for letting us participate in the patient's care. /[id number]/MODL MTDD
[2017-08-28] MEDS ORDERED: FUROSEMIDE 20 MG/2 ML VIAL IVP ONE (13:47)
--- NOTE | 2017-08-28 13:49 | PDDCSUM ---
Discharge Summary Discharge Summary: 67 YO male with hx of afib with multiple cardioversions admitted with SOB and likely CHF with exacerbation. He was given Diuretics in the E.D. and this morning and is now off O2. CXR still shows edema. Dr. Knapp with Cards saw his and is very familiar with this patient and he has recommended discharge with outpatient f/u and starting Lasix 20mg daily. As he is not symptomatic and he has good f/u, he will d/c home DDx: # ACUTE PULMONARY EDEMA, 1st ever episode, presumably cardiac etiology # HYPERTENSION, # PAROXYSMAL AFIB * Currently sinus, but did have cardioversion 2 days ago for episode of AFib triggered by anxiety * Started on Eliquis 3 days ago and keep present for at least a month due to the cardioversion # CAD, CORONARY CALCIFICATIONS SEEN ON CT today -negative trops, no cp on discharge # KNOWN PROSTATE CANCER, ATTEMPTING TO GET SET UP FOR SURGERY AT THE [facility] Exam: NAD [id number] MINIMALLY DECREASED LUNG SOUNDS RRR S/NT/ND NO LE EDEMA MEDS: see med re F/U: with [facility] next week. total time spent on discharge is 35 mins. D/W cardiology, pharmacy, nursing, and residential case manager
--- NOTE | 2017-08-28 14:15 | ASMTCMCOM ---
CM Note CM Note Notes: Patient reviewed during rounds. 67 year old male s/p cardioversion with cardiac history. He has been medically cleared for discharge to home No anticipated needs at this time. CM available should needs change. Plan: Likely home with family support. Date Signed: 08/28/2017 02:15 PM Electronically Signed By:Bridgette Kunz RN
--- NOTE | 2017-08-28 14:16 | ASMTLACE ---
[facility] Length of stay for Answers: 1 day current admission Acuity / Level of Answers: Yes Care: Did the patient have an inpatient admission? Comorbidities - select Answers: Congestive heart failure all that apply # of Emergency department Answers: 1-2 visits in the last 6 months Score: 7 Date Signed: 08/28/2017 02:15 PM Electronically Signed By:Bridgette Kunz RN
[2017-08-28 14:21] VITALS: BP 138/83
[2017-08-28] MEDS ORDERED: ESCITALOPRAM OXALATE 10 MG TAB PO SCH (21:00)
== END 2017-08-28 16:19 | disposition home or self-care (01) | DRG 293 ==
LOC: F2W 15:32
PROVIDERS: ADMIT Internal Medicine; ATTEND Family Medicine
DX: I50.9 Heart failure, unspecified (principal); I11.0 Hypertensive heart disease with heart failure; R50.9 Fever, unspecified; D72.829 Elevated white blood cell count, unspecified; I48.0 Paroxysmal atrial fibrillation; C61 Malignant neoplasm of prostate; I25.10 Atherosclerotic heart disease of native coronary artery without angina pectoris; E11.9 Type 2 diabetes mellitus without complications; E66.9 Obesity, unspecified; Z68.32 Body mass index [BMI] 32.0-32.9, adult; G47.33 Obstructive sleep apnea (adult) (pediatric); E78.5 Hyperlipidemia, unspecified; K58.9 Irritable bowel syndrome, unspecified; Z79.01 Long term (current) use of anticoagulants; Z86.010 Personal history of colon polyps; Z96.652 Presence of left artificial knee joint
CPT/HCPCS: 96374; J1940; J2060; Q9967

== ENCOUNTER 2018-01-21 11:41 | Emergency (ER) | payer BC ==
--- NOTE | 2018-01-21 12:27 | EDPHY ---
HPI/HX/ROS/PE/MDM Narrative: CHIEF COMPLAINT: Atrial fibrillation HISTORY OF PRESENT ILLNESS: The patient is an anticoagulated (Eliquis) 67 y/o male with a history of diabetes and atrial fibrillation complaining of feeling like he is in atrial fibrillation. He is not normally in atrial fibrillation. He had a cheek biopsy earlier this week which was slow to heal. Yesterday, he followed up with the ENT who provided a prescription mouth wash which improved his swelling and pain. This morning he awoke feeling similar to when he is in atrial fibrillation. He denies chest pain, shortness of breath, or any other associated symptoms. He denies any recent illness. He has been taking his Eliquis daily as directed. No fever, chills, chest pain, shortness of breath, palpitations, vomiting, diarrhea, urinary complaints, headache, lightheadedness. REVIEW OF SYSTEMS: A comprehensive 10 system review of systems is otherwise negative aside from elements mentioned in the history of present illness and medical decision making. PAST MEDICAL HISTORY: Diabetes, atrial fibrillation, prostate cancer, hypertension SOCIAL HISTORY: at bedside, lives in [facility] VITAL SIGNS: Reviewed by me. 94/67, 122 GENERAL: Well-developed, well-nourished, resting comfortably in no respiratory distress. HEENT: Atraumatic. Eyes: No icterus, no injection. Mouth: moist mucous membranes. No erythema or lesions. Neck: supple with no adenopathy. LUNGS: Clear to auscultation bilaterally, no wheezes, rhonchi or rales. CARDIAC: Irregular rate and rhythm, no rubs, murmurs or gallops. ABDOMEN: Soft, nontender, nondistended, bowel sounds normal. BACK: No CVA tenderness. EXTREMITIES: No trauma. No edema. Range of motion is normal throughout. NEURO: Alert and oriented, grossly nonfocal. SKIN: Warm and dry, no rash. PSYCHIATRIC: Normal mentation, no agitation. ED Course: PROCEDURE: Procedural sedation. Indication: Cardioversion A pre-sedation evaluation was completed on the patient. The patient has a Mallampati class 3 airway and meets the 3:3:2 criteria. He has not eaten or drank for about 4 hours. Patient is an appropriate candidate for procedural sedation. The risks, benefits, alternatives of sedation were discussed with the patient. Consent was obtained. The patient was pre-oxygenated with 100% O2 on a [id number] and moved to the procedure room where airway rescue equipment is available. A time out was observed. The patient was sedated with 100mg propofol. The patient was monitored with continuous pulse oximetry, groundwater monitoring technician, and end tidal CO2. There were no complications and no hypoxemia. The patient tolerated the procedure well and returned to baseline. I remained at the bedside for the sedation. The total time I spent in the procedural sedation was 15 minutes. PROCEDURE: Electrical Cardioversion Indication: Atrial fibrillation Risks, benefits, alternatives discussed with the patient and consent obtained. The patient was on a continuous groundwater monitoring technician, with airway equipment at the bedside. The patient was on continuous pulse oximetry and passive CO2 monitor. The synchronous cardioversion was performed with 150 joules biphasic current. The cardioversion was successful. The patient tolerated the procedure well with no complications. The procedure was performed by myself. ED Course: The patient presents feeling like he is in atrial fibrillation. He has a history of atrial fibrillation but is not normally in atrial fibrillation. He has had 2 previous cardioversion procedures. I discussed possible admission with this patient. He would like to avoid admission and have another cardioversion if possible. Plan for EKG, CBC, basic metabolic panel, troponin, and 10mg diltiazem for rate control. Patient BP had improved prior to administration of diltiazem-- now 110s systolic. 12:00 PM - Troponin is 0.05. The patient is still in atrial fibrillation. I consulted with Dr. Wolff, cardiology, regarding this patient. He agrees that elective cardioversion would be reasonable if patient has been compliant with his eliquis. This is in line with the patient's wishes. He has a Mallampati score of 3. He meets the 3-3-2 criteria. Plan for cardioversion with propofol for conscious sedation. 2:35 PM - He was sedated with 100mg propofol and cardioversion was completed. He converted to a sinus rhythm after which is his baseline based on review of previous EKGs. I feel he is safe to be discharged with strict instructions to follow up with his clinical nurse leader early this week. He agrees to this course of treatment. Critical care time spent by me, Dr. Gibbs, exclusively with this patient was 40 minutes, exclusive of PA time and exclusive of procedures. The organ system at risk was cardiovascular and I gave calcium channel blockers, provided conscious sedation, cardioverted the patient, and discussed with cardiology prevent worsening of the patients condition. MDM: Diff dx considered included paroxysmal atrial fibrillation, chronic atrial fibrillation, coronary artery disease, acute coronary syndrome, dehydration, electrolyte abnormalities. - Data Points Laboratory Results: Laboratory Results 01/21/18 11:55 01/21/18 11:55 Medications Given: Discontinued Medications Diltiazem HCl (Cardizem 25 Mg/5 Ml Vial) 10 mg IVP EDNOW ONE Stop: 01/21/18 12:34 Last Admin: 01/21/18 12:42 Dose: 10 mg Propofol (Diprivan) 100 mg IVP EDNOW ONE Stop: 01/21/18 14:15 Last Admin: 01/21/18 14:42 Dose: 100 mg Point of Care Test Results: Chemistry 01/21/18 12:01 POC Troponin I 0.05 ng/mL ng/mL (0.00-0.08) General Time Seen by Provider: 01/21/18 12:00 Initial Vital Signs: Initial Vital Signs Temperature (C) 36.4 C 01/21/18 11:46 Heart Rate 122 H 01/21/18 11:46 Respiratory Rate 16 01/21/18 11:46 Blood Pressure 94/67 L 01/21/18 11:46 O2 Sat (%) 98 01/21/18 11:46 O2 Delivery Mode [Post Room Air Procedure 1st] O2 Delivery Mode [Procedural Non-Rebreather Mask 1st] O2 Delivery Mode [.Immediate Non-Rebreather Mask Pre-Procedure] O2 Delivery Mode Room Air O2 (L/minute) [Procedural 1st] 15 O2 (L/minute) [.Immediate Pre- 15 Procedure] O2 (L/minute) 15 Allergies/Adverse Reactions: chlorhexidine Allergy (Mild, Verified 04/14/12 09:24) Rash acetaminophen Allergy (Verified 04/10/12 12:23) NAUSEA morphine Allergy (Verified 04/10/12 12:23) NAUSEA NSAIDS (Non-Steroidal Anti-Inflamma Allergy (Verified 09/27/16 15:24) Home Medications: Medication Instructions Recorded Apixaban [Eliquis] 5 mg PO BID 09/05/16 FENOFIBRATE 160 mg PO DAILY 09/05/16 Herbals/Supplements -Info Only 1 ea PO DAILY 09/05/16 Irbesartan [Avapro 150 mg (*)] 150 mg PO BIDMEAL 09/05/16 Metoprolol Tartrate [Lopressor 50 50 mg PO BID 09/05/16 mg (*)] Multivitamins [Multivitamin (*)] 1 tab PO DAILY 09/05/16 [place]-3 Fatty Acids [Fish Oil 1000 1,000 mg PO TIDMEAL 09/05/16 mg (*)] Propafenone HCl [Propafenone HCl 225 mg PO BID 09/05/16 ER] Tears/Dextran 70/Hypromellose 1 drop EACHEYE .4-5X/DAY PRN 09/05/16 [Natural Balance Tears (*)] Vitamin B Complex [B Complex] 1 each PO DAILY 09/05/16 metFORMIN HCL [Metformin HCl] 500 mg PO BIDMEAL 09/05/16 oxyCODONE IR [Oxycodone Ir (*)] 5 mg PO Q6HRS PRN 09/05/16 Diazepam [Valium 5 MG (*)] 5 mg PO BID PRN 08/27/17 Escitalopram Oxalate [Lexapro] 20 mg PO HS 08/27/17 Eszopiclone 5 mg PO HS 08/27/17 Melatonin/Pyridoxine HCl (B6) 20 mg PO HS PRN 08/27/17 [Melatonin 10 mg Tablet] Furosemide [Lasix] 20 mg PO DAILY #30 tablet 08/28/17 Lisinopril [Zestril 20 mg (*)] 5 mg PO DAILY #30 tab 08/28/17 Departure - Departure Disposition: Home, Routine, Self-Care Clinical Impression: Atrial fibrillation, Encounter for cardioversion procedure Condition: Good Instructions: Atrial Flutter (ED), A-fib (Atrial Fibrillation) (ED), Cardioversion (DC) Additional Instructions: 1. Continue taking all your medications as prescribed. 2. Follow up early this week with your clinical nurse leader. 3. Return to the emergency department for any return of symptoms or worsening of condition. Referrals: Reg Ge MD [Primary Care Provider] - As per Instructions Kyree Wolff MD [Medical Doctor] - As per Instructions Report Scribed for: Alicia Gibbs Report Scribed by: Cathy Alfaro Date of Report: 01/21/18 Time of Report: 14:14 Physician Review and Approval Statement: Portions of this note were transcribed by a medical imaging director. I personally performed a history, physical exam, medical decision making, and confirmed accuracy of information the transcribed note.
[2018-01-21] MEDS ORDERED: DILTIAZEM 25 MG/5 ML VIAL IVP ONE (12:33)
[2018-01-21 12:43] LABS: PLATELET COUNT 234 10^3/uL (150-400)
[2018-01-21 12:53] LABS: INR 1.2 (0.83-1.16); PROTIME(PATIENT) 15.4 SEC (12.0-15.0)
[2018-01-21] MEDS ORDERED: PROPOFOL 200 MG/20 ML VIAL IVP ONE (14:14)
[2018-01-21 15:18] VITALS: BP 118/78
--- NOTE | 2018-01-22 07:39 | CPEKG ---
Test Reason : OPEN Blood Pressure : / mmHG Vent. Rate : 129 BPM Atrial Rate : 357 BPM P-R Int : 156 ms QRS Dur : 088 ms QT Int : 315 ms P-R-T Axes : 000 -22 070 degrees QTc Int : 462 ms Atrial fibrillation Borderline left axis deviation Confirmed by Alicia Gibbs ([id number]) on 01/22/2018 7:38:32 AM Referred By: Confirmed By:Alicia Gibbs
--- NOTE | 2018-01-22 07:39 | CPEKG ---
Test Reason : OPEN Blood Pressure : / mmHG Vent. Rate : 082 BPM Atrial Rate : 083 BPM P-R Int : 165 ms QRS Dur : 088 ms QT Int : 379 ms P-R-T Axes : -52 -18 037 degrees QTc Int : 443 ms Ectopic atrial rhythm Borderline left axis deviation Confirmed by Alicia Gibbs ([id number]) on 01/22/2018 7:38:51 AM Referred By: Confirmed By:Alicia Gibbs
== END 2018-01-21 15:18 | disposition home or self-care (01) ==
DX: I48.91 Unspecified atrial fibrillation (principal); I10 Essential (primary) hypertension; E11.9 Type 2 diabetes mellitus without complications; Z79.01 Long term (current) use of anticoagulants; Z79.84 Long term (current) use of oral hypoglycemic drugs
CPT/HCPCS: 84484-PO; 96374; J2704

== ENCOUNTER → 2018-03-09 | Outpatient (CLI) | payer BC ==
[~2018-03-09] MED LIST: IOPAMIDOL (ISOVUE 370) 100 ML BTL IV ONE
== END ==
LOC: FIMAGING 07:51
PROVIDERS: ATTEND Internal Medicine Cardiovascular Disease
DX: I25.83 Coronary atherosclerosis due to lipid rich plaque (principal); I48.91 Unspecified atrial fibrillation; I48.92 Unspecified atrial flutter
CPT/HCPCS: 82565-PO; Q9967

== ENCOUNTER 2018-03-14 06:56 | Observation (INO) | payer BC, OTHER ==
[2018-03-14] MEDS ORDERED: NS 1,000 ML IV ONE (07:00)
[2018-03-14] MEDS ORDERED: HEPARIN/DEXTROSE 25,000 UNIT/500 ML BAG ONE (07:34)
[2018-03-14] MEDS ORDERED: LIDOCAINE 1% 300 MG/30 ML SDV ONE (07:34)
[2018-03-14] MEDS ORDERED: BUPIVACAINE 0.75% 10 ML SDV ONE (07:35)
[2018-03-14] MEDS ORDERED: HEPARIN 10,000 UNIT/10 ML MDV (1,000 UNIT/ML) ONE (07:35)
[2018-03-14] MEDS ORDERED: IOPAMIDOL (ISOVUE-300) 100 ML BTL ONE (07:36)
[2018-03-14 07:50] LABS: PLATELET COUNT 209 10^3/uL (150-400)
[2018-03-14 07:57] LABS: INR 1.06 (0.83-1.16)
--- NOTE | 2018-03-14 08:22 | PDGENHP ---
History & Physical Chief Complaint: Atrial fibrillation and atrial flutter History of Present Illness: Recurrent atrial arrhythmia (AF and atrial flutter) - recently requiring cardioversion for atrial flutter Relevant Physical Exam: General: A&Ox4, no apparent distress. Respiratory: CTA , no adventituous breath sounds. Cardiac: Regular rate and rhythm, ECG demonstrates NSR. Extremities: Pulses 2+ bilaterally, no edema, normal exam Cardiorespiratory Assessment: Proceed with atrial flutter ablation and AF CB ablation as planned. Patient is off eliquis and propafenone for this procedure. Will plan to hold Metformin post-procedure as indicated
[2018-03-14] MEDS ORDERED: MIDAZOLAM 2 MG/2 ML VIAL IVP ONE (08:30)
--- NOTE | 2018-03-14 08:33 | PDANEPAE ---
ANE History of Present Illness a fib/flutter for ablation ANE Past Medical History - Cardiovascular History Hx Hypertension: Yes Hx Arrhythmias: Yes Hx Chest Pain: No Hx CHF / Valvular Disease: No Hx Palpitations: Yes - Pulmonary History Hx COPD: No Hx Asthma/Reactive Airway Disease: No Hx Recent Upper Respiratory Infection: No Hx Oxygen in Use at Home: No Hx Sleep Apnea: Yes - Endocrine History Hx Diabetes: Yes Obesity: yes, moderate - Renal History Hx Renal Disorders: No - Liver History Hepatic History Comment: Gilbert's Syndrome. Hep C antibody positive - Neurological & Psychiatric Hx Hx Neurological and Psychiatric Disorders: No - Cancer History Cancer History Comment: Prostate Cancer - GI History Gastrointestinal History Comment: Irritable bowel syndrome - Chronic Pain History Chronic Pain: Yes ANE Review of Systems Review of systems is: negative Review of Systems: - Exercise capacity Exercise capacity: >=4 METS ANE Patient History - Allergies Allergies/Adverse Reactions: chlorhexidine Allergy (Mild, Verified 04/14/12 09:24) Rash acetaminophen Allergy (Verified 04/10/12 12:23) NAUSEA morphine Allergy (Verified 03/14/18 08:09) NAUSEA NSAIDS (Non-Steroidal Anti-Inflamma Allergy (Verified 03/14/18 08:09) - Home Medications Home medications: home medication list seen and reviewed Home Medications: Apixaban [Eliquis] 5 mg PO BID 09/05/16 [Last Taken 03/10/18 21:00] FENOFIBRATE 160 mg PO DAILY 09/05/16 [Last Taken 03/13/18] Herbals/Supplements -Info Only 1 ea PO DAILY 09/05/16 [Last Taken Unknown] Propafenone HCl [Propafenone HCl ER] 225 mg PO BID 09/05/16 [Last Taken 21:00] metFORMIN HCL [Metformin HCl] 500 mg PO BIDMEAL 09/05/16 [Last Taken 03/10/18 18 :00] oxyCODONE IR [Oxycodone Ir (*)] 5 mg PO 5XD PRN 09/05/16 [Last Taken 03/13/18] ALPRAZolam [Xanax 1 MG (*)] 1 mg PO HS PRN 03/14/18 [Last Taken 03/13/18] Escitalopram Oxalate [Lexapro] 10 mg PO HS 03/14/18 [Last Taken 03/13/18] Eszopiclone [Lunesta] 3 mg PO HS 03/14/18 [Last Taken 03/13/18] Indapamide [Indapamide 2.5 mg (*)] 2.5 mg PO DAILY 03/14/18 [Last Taken 03/13/18 ] Minoxidil [Minoxidil 2.5 mg (*)] 2.5 mg PO BID 03/14/18 [Last Taken 03/13/18 21: 00] Sildenafil Citrate [Revatio 20 MG (*)] 60 mg PO TID PRN 03/14/18 [Last Taken Unknown] Spironolactone [Aldactone 25 MG (*)] 25 mg PO BID 03/14/18 [Last Taken 03/13/18 21:00] - Anes Hx Anes Hx: no prior problems - Smoking Hx Smoking Status: Never smoked ANE Labs/Vital Signs - Labs Result Diagrams: 03/14/18 07:15 03/14/18 07:15 - Vital Signs Height: 175.26 cm Weight: 106.594 kg ANE Physical Exam - Airway Neck exam: FROM Mallampati Score: Class 2 Mouth exam: normal dental/mouth exam - Pulmonary Pulmonary: no respiratory distress - Cardiovascular Cardiovascular: regular rate and rhythym - ASA Status ASA Status: III ANE Anesthesia Plan Anesthesia Plan: general endotracheal anesthesia
[2018-03-14] MEDS ORDERED: fentaNYL 250 MCG/5 ML INJ ONE (08:37)
[2018-03-14] MEDS ORDERED: PROPOFOL 200 MG/20 ML VIAL ONE ×2 (08:38)
[2018-03-14] MEDS ORDERED: DEXAMETHASONE 4 MG/ML VIAL ONE (08:42)
[2018-03-14] MEDS ORDERED: ROCURONIUM 50 MG/5 ML VIAL ONE (08:42)
[2018-03-14] MEDS ORDERED: ONDANSETRON 4 MG/2 ML VIAL ONE (08:42)
[2018-03-14] MEDS ORDERED: PHENYLEPHRINE 10 MG/ML SDV ONE (08:43)
[2018-03-14] MEDS ORDERED: PROPOFOL/EMULSION 500 MG/50 ML BOTTLE IV ONE (10:16)
[2018-03-14] MEDS ORDERED: PROTAMINE SULFATE 50 MG/5 ML VIAL IVP ONE (11:45)
[2018-03-14] MEDS ORDERED: oxyCODONE IR 5 MG TAB PO PRN (11:59)
[2018-03-14] MEDS ORDERED: ALPRAZolam 1 MG TAB PO PRN (11:59)
--- NOTE | 2018-03-14 12:41 | EPPROC ---
Electrophysiology Procedure Note: ELECTROPHYSIOLOGIC STUDY AND BALLOON-CATHETER MEDIATED CRYOABLATION FOR PAROXYSMAL ATRIAL FIBRILLATION AND ATRIAL FLUTTER Procedures performed: 45047-04 EP evaluation with RA/RV/LA pace/record, with arrhythmia induction 09586-14 EP evaluation with RA/RV pace record, insert/reposition catheter, with arrhythmia induction 57802 Atrial fibrillation ablation Second arrhythmia Intracardiac echocardiogram Transseptal puncture Fluoroscopy INDICATION: Paroxysmal atrial fibrillation PROCEDURE: The patient arrived in the Electrophysiology Laboratory in the fasting state. The right groin, left groin and right infraclavicular area were prepped and draped in the usual sterile fashion. Anesthesiologist administered general anesthesia Dr. Enrrique Pierce . All catheters were placed percutaneously using the Seldinger technique and advanced into position under fluoroscopic guidance. One #7 Fijian deflectable octapolar electrode catheter was placed in the His-bundle position via the left femoral vein (2mm spacing, IVC electrode for unipolar recordings). This catheter was placed in the coronary sinus after transseptal puncture and later placed in the SVC-R subclavian vein junction to pace the right phrenic nerve during right pulmonary vein ablation. One #8 Fijian AcuNaV ultrasound catheter was placed in the left femoral vein and advanced into the right atrium. One #4 Fijian sheath was inserted into the left femoral artery via percutaneous technique and used for continuous arterial blood pressure monitoring and intermittent ACT determination. Programmed stimulation was performed from the right atrium, left atrium (CS) and right ventricle. There was no evidence of AV accessory pathway. Intracardiac echo evaluation of the left atrium and pulmonary veins was performed. Baseline ACT was drawn and heparin bolus was administered and heparin drip was started prior to transseptal puncture. ACT was checked every 15 minutes and maintained in the range of 350-400 seconds. One 14Fr short sheath was placed in the right femoral vein. One 8Fr SL1 sheath was advanced into the right atrium via the 14Fr short sheath. Transseptal puncture was performed under intracardiac ultrasound, fluoroscopic and hemodynamic guidance placing the sheath into the left atrium. [place] RF needle ( C0 curve) was used. The mean left atrial pressure was 10 mmHg. 3D map of left atrial and pulmonary veins was performed using PentaRay catheter. The SL1 sheath was exchanged for a Getaroundtronic Flexcath sheath using an Amplatz stiff guide wire. A 28 mm Cryoballoon catheter with a 20 mm Achieve catheter was placed via the sheath into the left atrium. Intracardiac ultrasound and PV angiograms were used to assist in placing the mapping catheter at the antrum of the pulmonary veins. All pulmonary veins were isolated successfully using cryoballoon ablation using freeze/thaw/freeze cycles at 2-3-minute intervals, with good [id number] of isolation. Coumadin ridge/Ligament of Hector region was ablated. Pre and post pulmonary vein recordings were measured on the spiral Achieve catheter to ensure complete pulmonary vein isolation. During the right-sided ablation, phrenic nerve pacing was performed to assess the phrenic nerve strength ( manually and with ICE visualization of liver movement during phrenic capture) and the phrenic nerve was intact throughout the right-sided ablation and at the end of the procedure. An esophageal temperature probe (12 electrode, Circa) was placed by the anesthesiologist at the beginning of the procedure. Esophageal temperature was monitored continuously and cryoablation was interrupted if esophageal temperature was <15 C. Cryoapplications 5 . Catheters were withdrawn into the right atrium. Halo catheter was placed along the tricuspid annulus. Using ST SF 3.5 mm irrigated catheter and Mobi sheath, ablation was performed along the cava tricuspid isthmus. Bidirectional conduction block was achieved. ICE imaging post ablation was consistent with pre ablation imaging with no changes noted, moreover there was no left atrial/left ventricular thrombus and no pericardial effusion. The catheters were withdrawn. Protamine was given. The sheaths were removed and subcutaneous pursestring suture and manual pressure was used for hemostasis. The patient was recovered from anesthesia. There were no complications. The patient was arousable and moving all four extremities at the end of the procedure. CONCLUSIONS: 1. Paroxysmal atrial fibrillation. 2. Successful pulmonary vein isolation procedure (left and right pulmonary vein antrum) using cryoballoon ablation. 3. Ablation along the cavotricuspid isthmus for atrial flutter, bidirectional conduction block achieved. 4. No apparent complications. Patient Problems: Problems Problem Status Onset Elevated troponin Acute Arrhythmia Acute CHF (congestive heart failure) Acute
--- NOTE | 2018-03-14 13:12 | POSTANESTH ---
Post Anesthetic Evaluation Cardiovascular Status: Normal, Stable Respiratory Status: Normal, Stable Level of Consciousness/Mental Status: Can Participate in Eval, Mildly Sleepy, Arousable Pain Control: Adequate, Prn Tx Ordered Nausea/Vomiting Control: Adequate, Prn Tx Ordered Complications Possibly Related to Anesthesia: None Noted
--- NOTE | 2018-03-14 13:16 | ECHO ---
[email or web address] [place] [id number] Main: [phone] Fax: Transthoracic Echocardiogram Name: KARI WAYNE MR#: [id number] Study Date: 03/14/2018 Study Time: 09:50 AM Date of : 1950 Age: 67 year(s) Height: ( ) Weight: ( ) BSA: Gender: Male Examination: TATIANA Indication: Pre EP Image Quality: Contrast: Requested by: Kyree Wolff BP: / Heart Rate: Rhythm: Indication: Pre EP Procedure Staff .Net Developer: Rayshawn Atkins RDCS Reading Physician: Kyree Wolff MD Requesting Provider: Measurements: Chambers Valvular Assessment AV/MV Valvular Assessment TV/PV Normal Normal Normal Name Value Range Name Value Range Name Value Range Continued Measurements: (No Signature Object) Patient: KARI WAYNE Study Date: 03/14/2018 Page 1 of 1 09:50 AM [id number]
[2018-03-14] MEDS: oxyCODONE IR 5 MG TAB PO PRN ×2 (13:50→19:16)
[2018-03-14] MEDS ORDERED: fentaNYL 100 MCG/2 ML INJ IVP ONE (16:00)
[2018-03-14] MEDS ORDERED: CARBOXYMETHYLCELLULOSE 0.5% 0.4 ML DROPERETTE EACHEYE PRN (16:07)
[2018-03-14] MEDS ORDERED: APIXABAN 5 MG TAB PO SCH (18:00)
[2018-03-14] MEDS: APIXABAN 5 MG TAB PO SCH ×2 (18:25→20:27)
[2018-03-14] MEDS: SPIRONOLACTONE 25 MG TAB PO SCH (20:27)
[2018-03-14] MEDS: ALPRAZolam 0.5 MG TAB PO PRN (20:27)
[2018-03-14] MEDS: MINOXIDIL 2.5 MG TAB PO SCH (20:27)
[2018-03-14] MEDS ORDERED: ESCITALOPRAM OXALATE 10 MG TAB PO SCH (21:00)
[2018-03-14] MEDS ORDERED: ZOLPIDEM TARTRATE 5 MG TAB PO SCH (21:00)
[2018-03-15] MEDS: ALPRAZolam 0.5 MG TAB PO PRN ×2 (02:21→09:48)
[2018-03-15] MEDS: oxyCODONE IR 5 MG TAB PO PRN ×2 (02:21→08:23)
[2018-03-15 05:37] LABS: PLATELET COUNT 203 10^3/uL (150-400)
--- NOTE | 2018-03-15 05:55 | CPEKG ---
Test Reason : OPEN Blood Pressure : / mmHG Vent. Rate : 070 BPM Atrial Rate : 070 BPM P-R Int : 171 ms QRS Dur : 088 ms QT Int : 406 ms P-R-T Axes : -33 -17 007 degrees QTc Int : 439 ms Sinus rhythm Borderline left axis deviation Borderline T abnormalities, inferior leads Confirmed by Everton Solo ([id number]) on 03/15/2018 5:55:12 AM Referred By: Confirmed By:Everton Solo
--- NOTE | 2018-03-15 05:59 | CPEKG ---
Test Reason : OPEN Blood Pressure : / mmHG Vent. Rate : 092 BPM Atrial Rate : 092 BPM P-R Int : 150 ms QRS Dur : 082 ms QT Int : 379 ms P-R-T Axes : 025 009 -12 degrees QTc Int : 469 ms Sinus rhythm Borderline right atrial enlargement Borderline T wave abnormalities inferior leads Confirmed by Everton Solo ([id number]) on 03/15/2018 5:58:45 AM Referred By: Confirmed By:Everton Solo
[2018-03-15] MEDS: MINOXIDIL 2.5 MG TAB PO SCH (08:22)
[2018-03-15] MEDS: SPIRONOLACTONE 25 MG TAB PO SCH (08:23)
[2018-03-15] MEDS: APIXABAN 5 MG TAB PO SCH (08:23)
[2018-03-15] MEDS ORDERED: Fenofibrate [Fenofibrate] 160 MG PO SCH (09:00)
[2018-03-15] MEDS ORDERED: PANTOPRAZOLE SODIUM 40 MG TAB PO SCH (09:00)
[2018-03-15] MEDS ORDERED: PNEUMOC 13-VAL CONJ-DIP CRM/PF 0.5 ML SYR (PREVNAR 13) IM ONE (09:26)
[2018-03-15 09:27] VITALS: BP 108/68
--- NOTE | 2018-03-15 11:20 | CPEKG ---
Test Reason : OPEN Blood Pressure : / mmHG Vent. Rate : 082 BPM Atrial Rate : 082 BPM P-R Int : 153 ms QRS Dur : 090 ms QT Int : 391 ms P-R-T Axes : -13 -13 000 degrees QTc Int : 457 ms Sinus rhythm Atrial premature complex Borderline T wave abnormalities Confirmed by Everton Solo ([id number]) on 03/15/2018 11:20:16 AM Referred By: Confirmed By:Everton Solo
--- NOTE | 2018-03-15 11:42 | ECHO ---
[email or web address] [address] [address] Main: [phone] Fax: Transthoracic Echocardiogram Name: KARI WAYNE MR#: [id number] Study Date: 03/15/2018 Study Time: 10:59 AM Date of : 1950 Age: 67 year(s) Height: 175.3 cm (69 in.) Weight: 99.79 kg (220 lb.) BSA: 2.15 m2 Gender: Male Examination: Echo Indication: Post EP study Image Quality: Good Contrast: Requested by: Kyree Wolff BP: 123 mmHg/81 mmHg Heart Rate: Rhythm: Indication: Post EP study Procedure Staff Instrumentation Fitter: Nancy Campbell RDCS Reading Physician: Carroll Starr MD Requesting Provider: Conclusions: No pericardial effusion. Preserved left ventricular systolic function with ejection fraction of 70-75%. Left atrial enlargement with diastolic dysfunction. Mild tricuspid regurgitation with right ventricular systolic pressure 46 mm of mercury. Measurements: Chambers Valvular Assessment AV/MV Valvular Assessment TV/PV Normal Normal Normal Name Value Range Name Value Range Name Value Range Ao Melody (MM): 4.0 cm (2.2 cm-3.7 AV Vmax: 1.52 m/s (1 m/s-1.7 TR Vmax: 3.20 mm/s ( - ) cm) m/s) TR PGmax: 41 mmHg ( - ) IVSd (2D): 0.9 cm (0.6 cm-1.1 AV maxP mmHg ( - ) syst. PAP: 46 mmHg ( - ) cm) AV meanP mmHg ( - ) LVDd (2D): 5.1 cm (4.2 cm-5.9 MV E Vmax: 0.95 m/s ( - ) cm) MV A Vmax: 0.50 m/s ( - ) LVDs (2D): 3.1 cm (2.1 cm-4 MV E/A: 1.90 ( - ) cm) LVPWd (2D): 0.9 cm (0.6 cm-1 cm) LVEF (MOD4): 78 % (>=55 %) EF Range: 70-75 % Continued Measurements: Chambers Valvular Assessment AV/MV Valvular Assessment TV/PV Name Value Name Value Name Value LADs: 4.7 cm MV E/E' Septal: 16.90 CVP (est.): 5 mmHg LADs Lon.8 cm MV E/E' Lateral: 14.80 LA Area: 28.8 cm2 LA Volume: 87 ml LA Volume Index: 40.5 ml/m2 Patient: KARI WAYNE Study Date: 03/15/2018 Page 1 of 2 10:59 AM Findings: Left Ventricle: Normal size left ventricle. No LV hypertrophy. Global hypercontractility of the left ventricle. The ejection fraction is estimated to be 70-75 %. No regional wall motion abnormality. Diastolic dysfunction is present. . Right Ventricle: Normal size right ventricle. Left Atrium: The left atrium is mildly dilated. Right Atrium: The right atrium is normal in size. Mitral Valve: The mitral valve is normal in appearance and function. Trivial mitral valve regurgitation. Aortic Valve: The aortic valve is tri-leaflet. Minimal aortic cusp calcification is noted. There is no aortic valve regurgitation. Tricuspid Valve: The tricuspid valve is normal in appearance and function. Mild tricuspid regurgitation is present. The pulmonary artery pressure is mildly increased. RVSP is 46mmHG. . Pulmonic Valve: The pulmonic valve is normal in appearance and function. Trivial pulmonic valve regurgitation. Aorta: The aorta is normal. Pericardium: No pericardial effusion. There is pericardial fat. (No Signature Object) Patient: KARI WAYNE Study Date: 03/15/2018 Page 2 of 2 10:59 AM [id number]
--- NOTE | 2018-03-15 13:57 | GDS ---
SUPERVISING MANAGER INTEL: Kyree Wolff MD. ADMISSION DIAGNOSES: 1. Atrial fibrillation. 2. Atrial flutter. DISCHARGE DIAGNOSES: 1. Atrial fibrillation, status post cryoballoon ablation. 2. Atrial flutter, status post cryoballoon ablation. PROCEDURES PERFORMED DURING HOSPITALIZATION 1. Electrophysiology study 2. Cryballoon ablation of atrial flutter and atrial fibrillation HOSPITAL COURSE: Patient presented to the [facility], March 14, 2018, for atrial flutter and atrial fibrillation ablation in the setting of increased frequency of paroxysmal episodes of atrial fibrillation and atrial flutter requiring cardioversion. He underwent successful cryoballoon ablation of atrial flutter ablation and pulmonary vein isolation for atrial fibrillation ablation with Dr. Kyree Wolff. He has done very well in the post-procedural period without any issues overnight. He is appropriate and stable for discharge home today. PHYSICAL EXAM: GENERAL APPEARANCE: Well developed, well nourished, alert and oriented x4. No apparent distress. CARDIAC: Normal S1 and S2. No S3, S4, or murmurs. Rhythm is regular. EXTREMITIES: There is no peripheral edema, cyanosis, or pallor. Extremities are warm and well perfused. Capillary refill is less than 2 seconds. No arrhythmia noted on telemetry overnight. RESPIRATORY: Clear to auscultation, without adventitious breath sounds. ABDOMEN: Normoactive bowel sounds times all 4 quadrants. Soft, nondistended, nontender. No guarding, rebound, or masses noted. EXTREMITIES: Pulses 2+ bilaterally. No bilateral lower extremity edema. Bilateral purse string sutures removed intact, without evidence of redness, oozing, swelling, hematoma , or warmth. VITAL SIGNS: Blood pressure 108/68, heart rate 88, SpO2 97% on room air, temp 37 degrees Celsius. LABORATORY STUDIES: Drawn today. CBC demonstrated WBCs 10.67, and otherwise stable compared to preprocedure. BMP was also stable. Troponin 4.110 this - morning. This is to be expected post atrial fibrillation ablation. PROCEDURES: Electrophysiology study and atrial flutter and atrial fibrillation ablations as described above. Preliminary echocardiogram this morning demonstrates stable echocardiogram compared to preprocedure without wall motion abnormalities or pericardial effusion. Electrocardiogram done today demonstrates normal sinus rhythm, without new ST or T-wave abnormalities. DISCHARGE DISPOSITION: Patient will be discharged home in stable condition today. He is under activity restrictions, including no lifting more than 10 pounds for 10 days and no submerged bathing during this same time frame. DISCHARGE MEDICATIONS: Please see discharge med reconciliation sheet. Note, patient has resumed his Eliquis 5 mg b.i.d. and his pantoprazole. DISCHARGE INSTRUCTIONS: Post atrial flutter ablation and atrial fibrillation ablation discharge instructions were reviewed in detail with patient and his , including activity restrictions, monitoring for signs and symptoms of infection, bleeding precautions, activity restrictions, and medication compliance. He will follow up in our clinic in 4 weeks and will have a repeat Holter monitor at 1, 3, and 6 months post procedure. He will contact our clinic with any new or concerning symptoms in the meantime. Total time spent on discharge: Greater than 45 minutes coordinate care and providing education /[id number]/MODL MTDD
== END 2018-03-15 12:35 | disposition home or self-care (01) ==
LOC: FCATH 06:56 → F2N 11:58
PROVIDERS: ADMIT Internal Medicine Cardiovascular Disease; ATTEND Internal Medicine Cardiovascular Disease
DX: I48.0 Paroxysmal atrial fibrillation (principal); I48.92 Unspecified atrial flutter; I10 Essential (primary) hypertension; E80.4 Gilbert syndrome; Z85.46 Personal history of malignant neoplasm of prostate; Z23 Encounter for immunization
CPT/HCPCS: 90471; 93005; 93306; 93312; G0378; G0009; J1100; J1644; J2250; J2370; J2405; J2704; J2720; J3010; Q9967

== ENCOUNTER → 2018-07-17 | Day surgery (SDC) | payer BC, OTHER ==
[~2018-07-17] MED LIST changes: +ATROPINE SULFATE 1 MG/10 ML SYR IVP ONE; -IOPAMIDOL (ISOVUE 370) 100 ML BTL IV ONE; +MIDAZOLAM 2 MG/2 ML VIAL IVP ONE; +NS 500 ML IV ONE; +fentaNYL 100 MCG/2 ML INJ IVP ONE
[2018-07-17 16:08] LABS: INR 1.15 (0.83-1.16); PROTIME(PATIENT) 14.2 SEC (12.0-15.0)
--- NOTE | 2018-07-17 16:29 | CPEKG ---
Test Reason : OPEN Blood Pressure : / mmHG Vent. Rate : 152 BPM Atrial Rate : 152 BPM P-R Int : 101 ms QRS Dur : 083 ms QT Int : 348 ms P-R-T Axes : 078 -24 117 degrees QTc Int : 554 ms Atrial flutter vs atrial tachcyardia Borderline left axis deviation Repolarization abnormality, prob rate related Prolonged QT interval Compared with 03/15/2018 atrial tachyarrhythmia now present Confirmed by Cherry Dutta ([id number]) on 07/17/2018 4:28:55 PM Referred By: Kyree Wolff Confirmed By:Cherry Dutta
--- NOTE | 2018-07-17 16:37 | PDGENHP ---
History & Physical Chief Complaint: palpitations Relevant Physical Exam: s1s2 tachycardic. cta. ao3 Cardiorespiratory Assessment: uninterrupted oac with Eliquis. for cardioversion
--- NOTE | 2018-07-17 17:05 | PDCARD ---
Cardioversion Procedure Procedure: electrical cardioversion Indications: other (atrial flutter/atrial tachycardia) Consent: signed and in chart Anticoagulation: eliquis Procedural Details: Pads were placed in anterior-posterior position. Synchronized cardioversion attempt #1: 100J Results: normal sinus rhythm Conclusions: successful cardioversion Patient Problems: Problems Problem Status Onset Arrhythmia Acute Atrial fibrillation and flutter Acute CHF (congestive heart failure) Acute Elevated troponin Acute
--- NOTE | 2018-07-17 17:12 | POSTANESTH ---
Post Anesthetic Evaluation Cardiovascular Status: Normal, Stable Respiratory Status: Normal, Stable Level of Consciousness/Mental Status: Can Participate in Eval Pain Control: Adequate, Prn Tx Ordered Nausea/Vomiting Control: Adequate, Prn Tx Ordered Complications Possibly Related to Anesthesia: None Noted
--- NOTE | 2018-07-17 17:12 | PDANEPAE ---
ANE Past Medical History - Cardiovascular History Hx Hypertension: Yes Hx Arrhythmias: Yes Hx Chest Pain: No Hx CHF / Valvular Disease: No Hx Palpitations: Yes - Pulmonary History Hx COPD: No Hx Asthma/Reactive Airway Disease: No Hx Recent Upper Respiratory Infection: No Hx Oxygen in Use at Home: No Hx Sleep Apnea: Yes - Endocrine History Hx Diabetes: Yes Hypothyroid: No - Renal History Hx Renal Disorders: No - Liver History Hepatic History Comment: Gilbert's Syndrome. Hep C antibody positive - Neurological & Psychiatric Hx Hx Neurological and Psychiatric Disorders: No - Cancer History Hx Cancer: Yes Cancer History Comment: Prostate Cancer - GI History Gastrointestinal History Comment: Irritable bowel syndrome - Chronic Pain History Chronic Pain: Yes ANE Review of Systems Review of Systems: ANE Patient History - Allergies Allergies/Adverse Reactions: chlorhexidine Allergy (Mild, Verified 04/14/12 09:24) Rash acetaminophen Allergy (Verified 04/10/12 12:23) NAUSEA morphine Allergy (Verified 03/14/18 08:09) NAUSEA NSAIDS (Non-Steroidal Anti-Inflamma Allergy (Verified 03/14/18 08:09) - Home Medications Home Medications: Apixaban [Eliquis] 5 mg PO BID 09/05/16 [Last Taken 03/10/18 21:00] FENOFIBRATE 160 mg PO DAILY 09/05/16 [Last Taken 03/13/18] Herbals/Supplements -Info Only 1 ea PO DAILY 09/05/16 [Last Taken Unknown] metFORMIN HCL [Metformin HCl] 500 mg PO BIDMEAL 09/05/16 [Last Taken 03/10/18 18 :00] ALPRAZolam [Xanax 1 MG (*)] 1 mg PO HS PRN 03/14/18 [Last Taken 03/13/18] Escitalopram Oxalate [Lexapro 10 MG] 10 mg PO HS 03/14/18 [Last Taken 03/13/18] Eszopiclone [Lunesta] 3 mg PO HS 03/14/18 [Last Taken 03/13/18] Indapamide [Indapamide 2.5 mg (*)] 2.5 mg PO DAILY 03/14/18 [Last Taken 03/13/18 ] Minoxidil [Minoxidil 2.5 mg (*)] 2.5 mg PO BID 03/14/18 [Last Taken 03/13/18 21: 00] Sildenafil Citrate [Revatio 20 MG (*)] 60 mg PO TID PRN 03/14/18 [Last Taken Unknown] Spironolactone [Aldactone 25 MG (*)] 25 mg PO BID 03/14/18 [Last Taken 03/13/18 21:00] oxyCODONE IR [Oxycodone Ir (*)] 10 mg PO 06,,,, PRN 03/14/18 [Last Taken 03/13/18 18:00] - Smoking Hx Smoking Status: Never smoked ANE Labs/Vital Signs - Labs Result Diagrams: 07/17/18 15:20 - Vital Signs Height: 177.8 cm Weight: 102.058 kg ANE Physical Exam - Airway Mallampati Score: Class 2 Mouth exam: normal dental/mouth exam - Pulmonary Pulmonary: no respiratory distress, no rales or rhonchi, clear to auscultation - Cardiovascular Cardiovascular: no murmur, rub, or gallop, tachycardia - ASA Status ASA Status: II ANE Anesthesia Plan Anesthesia Plan: GA with mask Total IV Anesthesia: Yes
--- NOTE | 2018-07-19 05:33 | CPEKG ---
Test Reason : OPEN Blood Pressure : / mmHG Vent. Rate : 083 BPM Atrial Rate : 084 BPM P-R Int : 163 ms QRS Dur : 086 ms QT Int : 376 ms P-R-T Axes : -07 -21 034 degrees QTc Int : 442 ms Sinus rhythm Multiple ventricular premature complexes Borderline left axis deviation 07/17/2018 at 15:34 sinus rhythm with PVCs now present. QT now normal When compared with ECG of Confirmed by Cherry Dutta ([id number]) on 07/19/2018 5:32:41 AM Referred By: Kyree Wolff Confirmed By:Cherry Dutta
== END | disposition home or self-care (01) ==
LOC: FCATH 15:07
PROVIDERS: ATTEND Internal Medicine Cardiovascular Disease
PROC: 5A2204Z Restoration of Cardiac Rhythm, Single (ICD-10-PCS; principal; 2018-07-17)
PROC: 4A02X4Z Measurement of Cardiac Electrical Activity, External Approach (ICD-10-PCS; principal; 2018-07-17)
DX: I47.1 Supraventricular tachycardia (principal); I48.92 Unspecified atrial flutter; I48.0 Paroxysmal atrial fibrillation; I10 Essential (primary) hypertension; E78.00 Pure hypercholesterolemia, unspecified; G47.33 Obstructive sleep apnea (adult) (pediatric); E11.9 Type 2 diabetes mellitus without complications; Z85.46 Personal history of malignant neoplasm of prostate; Z96.652 Presence of left artificial knee joint